=== PATIENT | female | born 1970 | race Caucasian/White ===

== ENCOUNTER 2020-06-04 15:30 | Inpatient (IN) | payer OTHER, MEDICARE ==
[~2020-06-04] VITALS: Ht 170.2 cm; Wt 52.9 kg
[2020-06-04] MEDS ORDERED: ondansetron/PF 4mg/2ml inj IV ONE (15:50)
[2020-06-04] MEDS ORDERED: morphine 4 MG/ML inj SYRINge IV ONE ×2 (15:50→16:50)
[2020-06-04 16:20] LABS: BASOPHILS # (AUTO) 0.1 X10'3 (0-0.2); BASOPHILS % (AUTO) 1.1 % (0-1); EOSINOPHILS # (AUTO) 0.1 X10'3 (0-0.9); EOSINOPHILS % (AUTO) 0.4 % (0-6); HEMOGLOBIN 7.1 g/dl (12.0-16.0); LYMPHOCYTES % (AUTO) 14.8 % (21-51); MEAN CORPUSCULAR HEMOGLOBIN 34.2 PG (27.0-31.0); MEAN CORPUSCULAR HGB CONC 33.2 g/dL (33.0-36.5); MEAN CORPUSCULAR VOLUME 103.2 FL (78-98); MEAN PLATELET VOLUME 10.6 FL (7.4-10.4); MONOCYTES # (AUTO) 1.6 X10'3 (0-0.9); MONOCYTES % (AUTO) 11.8 % (2-12); NEUTROPHILS # (AUTO) 9.6 X10'3 (1.8-7.7); NEUTROPHILS % (AUTO) 71.9 % (42-75); PLATELET COUNT 170 X10'3 (140-440); RED BLOOD COUNT 2.07 X10'6 (4.20-5.60); RED CELL DISTRIBUTION WIDTH 21.6 % (11.5-14.5); WHITE BLOOD COUNT 13.4 X10'3 (4.5-11.0)
[2020-06-04 16:22] LABS: HEMATOCRIT 21.3 % (35.0-45.0)
[2020-06-04 16:39] LABS: ALANINE AMINOTRANSFERASE 55 U/L (12-78); ALBUMIN 1.7 G/DL (3.4-5.0); ALKALINE PHOSPHATASE 258 IU/L (46-116); ANION GAP 6 (8-16); ASPARTATE AMINO TRANSFERASE 33 U/L (10-37); BILIRUBIN,TOTAL 3.8 MG/DL (0.1-1.0); BLOOD UREA NITROGEN 5 MG/DL (7-18); BUN/CREATININE RATIO 6.5 (6.6-38.0); CALCIUM 7.7 MG/DL (8.5-10.1); CHLORIDE 89 MMOL/L (99-107); CREATININE 0.77 MG/DL (0.40-0.90); GLUCOSE 305 MG/DL (70-104); SODIUM 123 MMOL/L (135-145); eGFR 80 ML/MIN
[2020-06-04 16:41] LABS: ALBUMIN/GLOBULIN RATIO 0.4 (1.1-1.5); TOTAL PROTEIN 5.7 G/DL (6.4-8.2)
[2020-06-04 16:43] LABS: POTASSIUM 2.8 MMOL/L (3.5-5.1)
[2020-06-04] MEDS ORDERED: normal saline 1000ML IV soln IVB ONE ×2 (16:50→19:25)
[2020-06-04] MEDS ORDERED: potassium Cl 10 mEq/100mL bag IV ONE ×2 (16:50→17:50)
[2020-06-04] MEDS ORDERED: iohexol 300mg/ml 100ml inj. ONE (17:11)
[2020-06-04] MEDS ORDERED: pantoprazole 40 MG vial IV ONE (17:25)
[2020-06-04] MEDS ORDERED: CefTRIAXone/D5W-Rocephin 1gm 50 ML IV ONE (17:30)
[2020-06-04 17:39] LABS: ANISOCYTOSIS 3+; PLATELET ESTIMATE NORMAL; TARGET CELLS 3+
[2020-06-04 17:41] LABS: POLYCHROMASIA 1+
[2020-06-04 17:42] LABS: PARTIAL THROMBOPLASTIN TIME 33 SECONDS (22-32)
[2020-06-04] MEDS ORDERED: phytonadione inj. 10 MG in normal saline 100ml IV soln 100 ML IV ONE (18:10)
[2020-06-04 18:52] LABS: CLARITY,URINE CLEAR (Clear); COLOR,URINE YELLOW (Yellow); GLUCOSE, URINE NEGATIVE (Neg); KETONES,URINE NEGATIVE (Neg); LEUKOCYTE ESTERASE ,URINE NEGATIVE (Neg); NITRITES, URINE NEGATIVE (Neg); OCCULT BLOOD,URINE NEGATIVE (Neg); PROTEIN,URINE NEGATIVE (Neg); UA COLLECTION TYPE CLN CATCH MIDSTREAM; UROBILINOGEN,URINE 0.2 E.U/dL (0.2-1.0)
--- NOTE | 2020-06-04 19:00 | NUR ---
LAB CALLED TO REPORT THAT PT HAS ANTIBODIES AND UNIT IS READY. DELVIN ANDRAE AWARE.
[2020-06-04 19:54] VITALS: BP 130/65
[2020-06-04 20:09] VITALS: BP 117/84
[2020-06-04] MEDS ORDERED: magnesium 2GM in 50ml NS 50 ML IV PRN (20:10)
[2020-06-04] MEDS ORDERED: acetaminophen 325mg tablet PO PRN (20:10)
[2020-06-04] MEDS ORDERED: potassium Cl 20 mEq SR tablet PO PRN ×2 (20:10)
[2020-06-04] MEDS ORDERED: magnesium 4gm in 100ml NS 100 ML IV PRN (20:10)
[2020-06-04] MEDS ORDERED: potassium CL 10mEq/100ml bag 100 ML IV PRN (20:10)
[2020-06-04] MEDS: normal saline 1000ml 1,000 ML IV SCH (20:34)
[2020-06-04 21:09] VITALS: BP 125/80
--- NOTE | 2020-06-04 21:11 | NUR ---
Pt is tolerating the blood transfusion without difficulty at this time.
[2020-06-04] MEDS ORDERED: METO-395 PO (21:37)
[2020-06-04] MEDS ORDERED: APIX5TAB3 PO (21:37)
[2020-06-04 22:00] VITALS: BP 128/82
[2020-06-04] MEDS: potassium CL 10mEq/100ml bag 100 ML IV PRN ×2 (22:34→23:53)
[2020-06-04] MEDS: morphine 2 MG/ML inj. syringe IV PRN (22:44)
[2020-06-04] MEDS: piperacillin/tazo 4.5gm/100ml 100 ML IV SCH (23:52)
[2020-06-05] VITALS (15 sets, daily range): BP systolic 87–115; BP diastolic 49–71
[2020-06-05] MEDS ORDERED: piperacillin/tazo 3.375gm/50ml 50 ML IV SCH
[2020-06-05] MEDS: potassium CL 10mEq/100ml bag 100 ML IV PRN ×4 (01:13→05:51)
[2020-06-05 03:49] LABS: BASOPHILS # (AUTO) 0.1 X10'3 (0-0.2); BASOPHILS % (AUTO) 0.5 % (0-1); EOSINOPHILS # (AUTO) 0.1 X10'3 (0-0.9); EOSINOPHILS % (AUTO) 1.1 % (0-6); HEMATOCRIT 23.1 % (35.0-45.0); HEMOGLOBIN 7.9 g/dl (12.0-16.0); LYMPHOCYTES # (AUTO) 2.6 X10'3 (1.1-4.8); LYMPHOCYTES % (AUTO) 19.7 % (21-51); MEAN CORPUSCULAR HEMOGLOBIN 33.8 PG (27.0-31.0); MEAN CORPUSCULAR VOLUME 99.4 FL (78-98); MEAN PLATELET VOLUME 10.7 FL (7.4-10.4); MONOCYTES # (AUTO) 1.8 X10'3 (0-0.9); MONOCYTES % (AUTO) 13.9 % (2-12); NEUTROPHILS # (AUTO) 8.6 X10'3 (1.8-7.7); NEUTROPHILS % (AUTO) 64.8 % (42-75); PLATELET COUNT 143 X10'3 (140-440); RED BLOOD COUNT 2.32 X10'6 (4.20-5.60); RED CELL DISTRIBUTION WIDTH 19.7 % (11.5-14.5); WHITE BLOOD COUNT 13.2 X10'3 (4.5-11.0)
[2020-06-05] MEDS: morphine 2 MG/ML inj. syringe IV PRN ×5 (04:56→21:32)
[2020-06-05] MEDS: normal saline 1000ml 1,000 ML IV SCH ×2 (05:51→16:21)
--- NOTE | 2020-06-05 06:35 | NUR ---
Problems reprioritized. Patient report given, questions answered & plan of care reviewed with DELVIN Prakash.
--- NOTE | 2020-06-05 06:37 | NUR ---
Patient in room ORTHO 4013. I have received report from Ashlie Henriquez and had the opportunity to ask questions and assume patient care.
[2020-06-05] MEDS: metoprolol succinate 25mg (24-HOUR) SR. Tablet PO SCH (07:46)
[2020-06-05] MEDS: piperacillin/tazo 4.5gm/100ml 100 ML IV SCH ×2 (07:47→16:13)
[2020-06-05] MEDS: K and/or MAG REPLACEMENT MC SCH ×2 (08:00→19:48)
[2020-06-05] MEDS ORDERED: octreotide inj. 1,250 MCG in normal saline 250ml IV soln 250 ML IV SCH (08:50)
[2020-06-05 09:08] LABS: BASOPHILS # (AUTO) 0.1 X10'3 (0-0.2); BASOPHILS % (AUTO) 0.6 % (0-1); EOSINOPHILS # (AUTO) 0.1 X10'3 (0-0.9); EOSINOPHILS % (AUTO) 0.8 % (0-6); HEMATOCRIT 23.6 % (35.0-45.0); HEMOGLOBIN 8.1 g/dl (12.0-16.0); LYMPHOCYTES # (AUTO) 1.8 X10'3 (1.1-4.8); LYMPHOCYTES % (AUTO) 12.4 % (21-51); MEAN CORPUSCULAR HEMOGLOBIN 34.4 PG (27.0-31.0); MEAN CORPUSCULAR HGB CONC 34.3 g/dL (33.0-36.5); MEAN CORPUSCULAR VOLUME 100.2 FL (78-98); MEAN PLATELET VOLUME 10.6 FL (7.4-10.4); MONOCYTES # (AUTO) 2.2 X10'3 (0-0.9); MONOCYTES % (AUTO) 15.8 % (2-12); NEUTROPHILS % (AUTO) 70.4 % (42-75); PLATELET COUNT 148 X10'3 (140-440); RED BLOOD COUNT 2.36 X10'6 (4.20-5.60); RED CELL DISTRIBUTION WIDTH 20.8 % (11.5-14.5); WHITE BLOOD COUNT 14.2 X10'3 (4.5-11.0)
[2020-06-05 09:24] LABS: ALBUMIN 1.4 G/DL (3.4-5.0); ANION GAP 1 (8-16); BLOOD UREA NITROGEN 5 MG/DL (7-18); BUN/CREATININE RATIO 8.6 (6.6-38.0); CALCIUM 7.3 MG/DL (8.5-10.1); CHLORIDE 99 MMOL/L (99-107); CREATININE 0.58 MG/DL (0.40-0.90); GLUCOSE 86 MG/DL (70-104); MAGNESIUM 1.3 MG/DL (1.5-2.4); POTASSIUM 3.8 MMOL/L (3.5-5.1); SODIUM 128 MMOL/L (135-145); TOTAL CARBON DIOXIDE 27.7 MMOL/L (24-32); eGFR > 90 ML/MIN
[2020-06-05 10:24] LABS: TOTAL CELLS COUNTED 100
[2020-06-05 10:27] LABS: ANISOCYTOSIS 3+; HYPOCHROMASIA 1+; PLATELET ESTIMATE NORMAL; POLYCHROMASIA 2+; TARGET CELLS 2+
[2020-06-05] MEDS: magnesium Cl slow-release 64mg tablet PO PRN ×2 (10:27→23:03)
[2020-06-05 10:28] LABS: SCHISTOCYTES FEW
[2020-06-05 11:23] LABS: HEMOGLOBIN 8.9 g/dl (12.0-16.0); MEAN CORPUSCULAR HEMOGLOBIN 34.2 PG (27.0-31.0); MEAN CORPUSCULAR HGB CONC 34.2 g/dL (33.0-36.5); MEAN PLATELET VOLUME 10.4 FL (7.4-10.4); PLATELET COUNT 152 X10'3 (140-440); WHITE BLOOD COUNT 14.7 X10'3 (4.5-11.0)
[2020-06-05] MEDS: pantoprazole 40MG/NS 100ML BAG 100 ML IV SCH ×2 (11:50→16:14)
[2020-06-05 12:46] LABS: OCCULT BLOOD STOOL NEGATIVE (Neg)
[2020-06-05] MEDS ORDERED: fentaNYL/PF 50MCG/1 ML 2ML syringe ONE ×2 (14:13→17:11)
--- NOTE | 2020-06-05 15:17 | NUR ---
Malnutrition consult: Pt reports 2-13 lb wt loss with decreased appetite per malnutrition risk screen with RN. Current wt isn't scaled. D/w RN who reports patient's current documented BMI of 15.5 very unlikely. RN will obtain scaled weight once pt returns from paracentesis. RD briefly spoke with pt via TC prior to pt leaving room for para, pt reports she is "starving" and is requesting food. Pt with no documented significant decrease in muscle strength or edema. Pt with hx liver cirrhosis and ascites. Likely that patient's weight fluctuates with changes in fluid status. Pt currently lacks a minimum of two criteria for malnutrition. Will continue to follow. Addendum: 06/05/20 at [address] Amended: Links added.
--- NOTE | 2020-06-05 17:07 | NUR ---
Pt off unit to GI lab
[2020-06-05] MEDS ORDERED: LIDOcaine Viscous 15ml cup ONE (17:11)
[2020-06-05] MEDS ORDERED: MIDAZolam 5mg/5ml vial ONE (17:11)
--- NOTE | 2020-06-05 18:22 | NUR ---
Problems reprioritized. Patient report given, questions answered & plan of care reviewed with Ashlie Block
--- NOTE | 2020-06-05 19:44 | NUR ---
Patient back to floor from EGD. Pt alert and orientated x4. Pt requesting something to eat at this time.
--- NOTE | 2020-06-05 19:53 | NUR ---
New order received for clear liquid diet.
[2020-06-05 20:27] LABS: HEMATOCRIT 28.5 % (35.0-45.0); HEMOGLOBIN 9.7 g/dl (12.0-16.0); MEAN CORPUSCULAR HEMOGLOBIN 35.1 PG (27.0-31.0); MEAN CORPUSCULAR HGB CONC 34.1 g/dL (33.0-36.5); MEAN CORPUSCULAR VOLUME 102.8 FL (78-98); MEAN PLATELET VOLUME 10.4 FL (7.4-10.4); PLATELET COUNT 158 X10'3 (140-440); RED BLOOD COUNT 2.77 X10'6 (4.20-5.60); RED CELL DISTRIBUTION WIDTH 20.9 % (11.5-14.5); WHITE BLOOD COUNT 13.8 X10'3 (4.5-11.0)
--- NOTE | 2020-06-05 22:00 | NUR ---
In to check post-op vital signs to find patient had taken off blood pressure cuff thus only able the to get 2 post op vital sign readings. Patient vital signs are stable at this time.
[2020-06-06] VITALS (10 sets, daily range): BP systolic 94–147; BP diastolic 55–79
[2020-06-06] MEDS: pantoprazole 40MG/NS 100ML BAG 100 ML IV SCH ×3 (00:21→11:00)
[2020-06-06] MEDS: piperacillin/tazo 4.5gm/100ml 100 ML IV SCH ×3 (00:21→12:51)
[2020-06-06] MEDS: morphine 2 MG/ML inj. syringe IV PRN ×5 (01:35→21:04)
--- NOTE | 2020-06-06 02:31 | NUR ---
Made aware that patient was having drainage around j-tube site. Some drainage noted, 4x4, abd pad with foam tape applied. J-tube was drained of purulent drainage of 25 mls. Will continue to monitor. Addendum: 06/06/20 at 0614 by Ashlie Robertson RN Not a j-tube but walter drain
[2020-06-06] MEDS: normal saline 1000ml 1,000 ML IV SCH ×3 (05:41→23:28)
--- NOTE | 2020-06-06 06:00 | NUR ---
Patient in room ORTHO 4013. I have received report from Simone Dailey RN and had the opportunity to ask questions and assume patient care.
--- NOTE | 2020-06-06 06:14 | NUR ---
Report given to Shantel HARGROVE.
[2020-06-06 06:29] LABS: BASOPHILS # (AUTO) 0.2 X10'3 (0-0.2); EOSINOPHILS # (AUTO) 0.4 X10'3 (0-0.9); EOSINOPHILS % (AUTO) 2.2 % (0-6); LYMPHOCYTES # (AUTO) 1.8 X10'3 (1.1-4.8); MEAN CORPUSCULAR HEMOGLOBIN 34.3 PG (27.0-31.0); MEAN CORPUSCULAR HGB CONC 33.2 g/dL (33.0-36.5); MEAN CORPUSCULAR VOLUME 103.4 FL (78-98); MONOCYTES # (AUTO) 1.6 X10'3 (0-0.9); MONOCYTES % (AUTO) 10.3 % (2-12); NEUTROPHILS # (AUTO) 12.1 X10'3 (1.8-7.7); NEUTROPHILS % (AUTO) 75.5 % (42-75); PLATELET COUNT 130 X10'3 (140-440); RED BLOOD COUNT 1.99 X10'6 (4.20-5.60); RED CELL DISTRIBUTION WIDTH 21.6 % (11.5-14.5); WHITE BLOOD COUNT 16.1 X10'3 (4.5-11.0)
[2020-06-06 06:38] LABS: ALBUMIN 1.3 G/DL (3.4-5.0); ANION GAP 5 (8-16); BLOOD UREA NITROGEN 6 MG/DL (7-18); BUN/CREATININE RATIO 7.8 (6.6-38.0); CALCIUM 7.8 MG/DL (8.5-10.1); CHLORIDE 98 MMOL/L (99-107); CREATININE 0.77 MG/DL (0.40-0.90); GLUCOSE 204 MG/DL (70-104); MAGNESIUM 1.5 MG/DL (1.5-2.4); POTASSIUM 3.7 MMOL/L (3.5-5.1); SODIUM 127 MMOL/L (135-145); TOTAL CARBON DIOXIDE 23.6 MMOL/L (24-32); eGFR 80 ML/MIN
[2020-06-06 06:48] LABS: HEMATOCRIT 20.6 % (35.0-45.0); HEMOGLOBIN 6.8 g/dl (12.0-16.0)
--- NOTE | 2020-06-06 07:05 | NUR ---
Paged : [phone], Claudia Sherwood. Patient has a critical H&H of 6.8, and 20.6. would you like to order a unit of LRPC? Patient is currently asymptomatic. Eric Funes.
[2020-06-06 07:29] LABS: ANISOCYTOSIS 3+; PLATELET ESTIMATE DECREASED; POLYCHROMASIA 2+; TARGET CELLS 1+
[2020-06-06] MEDS: K and/or MAG REPLACEMENT MC SCH ×2 (08:00→20:00)
[2020-06-06] MEDS: metoprolol succinate 25mg (24-HOUR) SR. Tablet PO SCH (08:49)
[2020-06-06] MEDS ORDERED: HYDROcodone/acetaminophen 5mg/325mg tablet PO PRN (12:05)
--- NOTE | 2020-06-06 12:25 | NUR ---
Birdie held this AM to transfuse blood spoke with pharmacist instructed to give the AM dose and hold 1600.
[2020-06-06] MEDS ORDERED: PEG 3350/Na sulf,bicarb,Cl/KCl oral sol 4 liter bottle PO ONE (13:05)
[2020-06-06] MEDS: HYDROcodone/acetaminophen 5mg/325mg tablet PO PRN ×2 (13:44→19:52)
[2020-06-06 16:34] LABS: HEMATOCRIT 23.4 % (35.0-45.0); HEMOGLOBIN 7.9 g/dl (12.0-16.0); MEAN CORPUSCULAR HEMOGLOBIN 33.6 PG (27.0-31.0); MEAN CORPUSCULAR HGB CONC 33.8 g/dL (33.0-36.5); MEAN CORPUSCULAR VOLUME 99.3 FL (78-98); MEAN PLATELET VOLUME 10.7 FL (7.4-10.4); PLATELET COUNT 121 X10'3 (140-440); RED BLOOD COUNT 2.35 X10'6 (4.20-5.60); WHITE BLOOD COUNT 17.2 X10'3 (4.5-11.0)
--- NOTE | 2020-06-06 18:22 | NUR ---
Problems reprioritized. Patient report given, questions answered & plan of care reviewed with Gracie Huynh RN.
--- NOTE | 2020-06-06 18:51 | NUR ---
Patient in room ORTHO 4013. I have received report from DELVIN Funes and had the opportunity to ask questions and assume patient care. Addendum: 06/06/20 at 1851 by Lilliam Taylor RN Amended: Links added.
[2020-06-06] MEDS: pantoprazole 40mg Tablet.DR PO SCH (19:51)
[2020-06-06] MEDS: lactobacillus rhamnosus 10,000 MMU CELLS/CAPSULE PO SCH (19:51)
[2020-06-06 21:24] LABS: HEMATOCRIT 23.3 % (35.0-45.0); HEMOGLOBIN 7.8 g/dl (12.0-16.0); MEAN CORPUSCULAR HEMOGLOBIN 33.4 PG (27.0-31.0); MEAN CORPUSCULAR HGB CONC 33.5 g/dL (33.0-36.5); MEAN CORPUSCULAR VOLUME 99.7 FL (78-98); MEAN PLATELET VOLUME 10.9 FL (7.4-10.4); PLATELET COUNT 118 X10'3 (140-440); RED BLOOD COUNT 2.33 X10'6 (4.20-5.60); RED CELL DISTRIBUTION WIDTH 18.8 % (11.5-14.5); WHITE BLOOD COUNT 17.5 X10'3 (4.5-11.0)
[2020-06-07] VITALS (18 sets, daily range): BP systolic 99–137; BP diastolic 58–86
[2020-06-07] MEDS: piperacillin/tazo 4.5gm/100ml 100 ML IV SCH ×3 (00:03→15:49)
[2020-06-07] MEDS: morphine 2 MG/ML inj. syringe IV PRN ×8 (01:17→23:11)
[2020-06-07] MEDS: normal saline 1000ml 1,000 ML IV SCH ×2 (04:00→19:49)
--- NOTE | 2020-06-07 06:24 | NUR ---
Patient in room ORTHO 4013. I have received report from Antonia HARGROVE and had the opportunity to ask questions and assume patient care. Patient without an IV and a full code, although a field start is still in place. Patient admitted on 06/04/2020, with a field start in place at this time and used on NOC shift.
--- NOTE | 2020-06-07 06:29 | NUR ---
Problems reprioritized. Patient report given, questions answered & plan of care reviewed with DELVIN Braun.
[2020-06-07 06:32] LABS: BASOPHILS # (AUTO) 0.2 X10'3 (0-0.2); BASOPHILS % (AUTO) 0.9 % (0-1); EOSINOPHILS # (AUTO) 0.4 X10'3 (0-0.9); LYMPHOCYTES # (AUTO) 1.7 X10'3 (1.1-4.8); LYMPHOCYTES % (AUTO) 9.4 % (21-51); MEAN CORPUSCULAR HEMOGLOBIN 33.1 PG (27.0-31.0); MEAN CORPUSCULAR HGB CONC 33.3 g/dL (33.0-36.5); MEAN CORPUSCULAR VOLUME 99.5 FL (78-98); MEAN PLATELET VOLUME 11.1 FL (7.4-10.4); MONOCYTES # (AUTO) 2.2 X10'3 (0-0.9); MONOCYTES % (AUTO) 12.4 % (2-12); NEUTROPHILS # (AUTO) 13.7 X10'3 (1.8-7.7); NEUTROPHILS % (AUTO) 75.3 % (42-75); PLATELET COUNT 106 X10'3 (140-440); RED BLOOD COUNT 1.95 X10'6 (4.20-5.60); RED CELL DISTRIBUTION WIDTH 19.1 % (11.5-14.5); WHITE BLOOD COUNT 18.1 X10'3 (4.5-11.0)
[2020-06-07 06:42] LABS: ALBUMIN 1.1 G/DL (3.4-5.0); ANION GAP 6 (8-16); BLOOD UREA NITROGEN 4 MG/DL (7-18); BUN/CREATININE RATIO 5.7 (6.6-38.0); CALCIUM 7.3 MG/DL (8.5-10.1); CHLORIDE 96 MMOL/L (99-107); GLUCOSE 236 MG/DL (70-104); MAGNESIUM 1.3 MG/DL (1.5-2.4); POTASSIUM 3.3 MMOL/L (3.5-5.1); SODIUM 125 MMOL/L (135-145); TOTAL CARBON DIOXIDE 23.3 MMOL/L (24-32); eGFR 89 ML/MIN
[2020-06-07 06:47] LABS: HEMATOCRIT 19.4 % (35.0-45.0); HEMOGLOBIN 6.4 g/dl (12.0-16.0)
--- NOTE | 2020-06-07 07:03 | NUR ---
PAGER ID: [phone] MESSAGE: GOOD MORNING! 4013B has a critical H/H 6.4/19.4. Aparna [phone]
[2020-06-07] MEDS: HYDROcodone/acetaminophen 5mg/325mg tablet PO PRN (07:08)
[2020-06-07] MEDS: lactobacillus rhamnosus 10,000 MMU CELLS/CAPSULE PO SCH ×2 (07:08→19:58)
[2020-06-07] MEDS: pantoprazole 40mg Tablet.DR PO SCH ×2 (07:08→19:58)
[2020-06-07] MEDS: K and/or MAG REPLACEMENT MC SCH ×2 (08:00→20:04)
[2020-06-07] MEDS: metoprolol succinate 25mg (24-HOUR) SR. Tablet PO SCH (08:00)
[2020-06-07 08:57] LABS: TOTAL CELLS COUNTED 100
[2020-06-07 08:59] LABS: ANISOCYTOSIS 2+; PLATELET ESTIMATE DECREASED
[2020-06-07 09:00] LABS: ACANTHOCYTES FEW; BURR CELLS FEW; HYPOCHROMASIA 1+; POLYCHROMASIA FEW; TARGET CELLS 1+
--- NOTE | 2020-06-07 14:00 | NUR ---
O2 Sat at rest on room air:_94__% If below 89%: Recovery O2 Sat at rest on ___LPM:___%:___% via (mask/nasal cannula, etc..) No further documentation is necessary. If O2 Sat did not drop below 89% on room air,ambulate patient on room air. O2 Sat while ambulating on room air:___% Recovery O2 Sat while ambulating on ___LPM:___% No further documentation is necessary. If patient does not drop below 89% while ambulating, he/she does not qualify for home O2. Addendum: 06/07/20 at 1700 by Aparna Romeo RN Wrong patient charted on
[2020-06-07 14:57] LABS: HEMATOCRIT 25.3 % (35.0-45.0); HEMOGLOBIN 8.5 g/dl (12.0-16.0); MEAN CORPUSCULAR HEMOGLOBIN 33.2 PG (27.0-31.0); MEAN CORPUSCULAR HGB CONC 33.7 g/dL (33.0-36.5); MEAN CORPUSCULAR VOLUME 98.5 FL (78-98); MEAN PLATELET VOLUME 11.1 FL (7.4-10.4); PLATELET COUNT 95 X10'3 (140-440); RED BLOOD COUNT 2.57 X10'6 (4.20-5.60); RED CELL DISTRIBUTION WIDTH 16.7 % (11.5-14.5); WHITE BLOOD COUNT 19.9 X10'3 (4.5-11.0)
--- NOTE | 2020-06-07 17:00 | NUR ---
Off the unit to GI lab
[2020-06-07] MEDS ORDERED: fentaNYL/PF 50MCG/1 ML 2ML syringe ONE (17:30)
[2020-06-07] MEDS ORDERED: MIDAZolam 5mg/5ml vial ONE (17:30)
--- NOTE | 2020-06-07 18:20 | NUR ---
Patient in room ORTHO 4013. I have received report from Aparna HARGROVE and had the opportunity to ask questions and assume patient care. Pt. remains in procedure at this time.
[2020-06-07 20:27] LABS: HEMOGLOBIN 7.3 g/dl (12.0-16.0); MEAN CORPUSCULAR HEMOGLOBIN 32.5 PG (27.0-31.0); MEAN CORPUSCULAR HGB CONC 33.4 g/dL (33.0-36.5); MEAN CORPUSCULAR VOLUME 97.4 FL (78-98); MEAN PLATELET VOLUME 11.1 FL (7.4-10.4); PLATELET COUNT 92 X10'3 (140-440); RED BLOOD COUNT 2.26 X10'6 (4.20-5.60); RED CELL DISTRIBUTION WIDTH 17.6 % (11.5-14.5); WHITE BLOOD COUNT 17.9 X10'3 (4.5-11.0)
[2020-06-08] MEDS: piperacillin/tazo 4.5gm/100ml 100 ML IV SCH ×4 (00:10→23:48)
[2020-06-08] MEDS ORDERED: potassium Cl 20 mEq SR tablet PO PRN ×4 (01:30→09:35)
[2020-06-08] MEDS ORDERED: potassium CL 10mEq/100ml bag 100 ML IV PRN ×2 (01:30→09:35)
[2020-06-08] MEDS: morphine 2 MG/ML inj. syringe IV PRN ×4 (01:56→09:12)
[2020-06-08 04:21] LABS: BASOPHILS # (AUTO) 0.1 X10'3 (0-0.2); BASOPHILS % (AUTO) 0.5 % (0-1); EOSINOPHILS # (AUTO) 0.4 X10'3 (0-0.9); HEMATOCRIT 22.8 % (35.0-45.0); HEMOGLOBIN 7.6 g/dl (12.0-16.0); LYMPHOCYTES # (AUTO) 1.7 X10'3 (1.1-4.8); LYMPHOCYTES % (AUTO) 8.4 % (21-51); MEAN CORPUSCULAR HEMOGLOBIN 32.3 PG (27.0-31.0); MEAN CORPUSCULAR HGB CONC 33.2 g/dL (33.0-36.5); MEAN CORPUSCULAR VOLUME 97.5 FL (78-98); MEAN PLATELET VOLUME 11.4 FL (7.4-10.4); MONOCYTES # (AUTO) 2.2 X10'3 (0-0.9); MONOCYTES % (AUTO) 10.9 % (2-12); NEUTROPHILS # (AUTO) 15.6 X10'3 (1.8-7.7); NEUTROPHILS % (AUTO) 78.2 % (42-75); PLATELET COUNT 109 X10'3 (140-440); RED BLOOD COUNT 2.34 X10'6 (4.20-5.60); RED CELL DISTRIBUTION WIDTH 18.2 % (11.5-14.5)
[2020-06-08 04:59] LABS: ANISOCYTOSIS 2+; PLATELET ESTIMATE DECREASED; TOTAL CELLS COUNTED 100
[2020-06-08 05:00] LABS: BURR CELLS 1+; LARGE PLATELETS FEW; POLYCHROMASIA FEW; SMUDGE CELLS FEW; TARGET CELLS FEW
[2020-06-08] MEDS: normal saline 1000ml 1,000 ML IV SCH ×2 (05:12→16:06)
[2020-06-08] MEDS: HYDROcodone/acetaminophen 5mg/325mg tablet PO PRN ×2 (05:16→20:21)
[2020-06-08 06:00] VITALS: BP 124/80
--- NOTE | 2020-06-08 06:20 | NUR ---
Problems reprioritized. Patient report given, questions answered & plan of care reviewed with Garrison RN.
--- NOTE | 2020-06-08 06:30 | NUR ---
Patient in room ORTHO 4013. I have received report from Emerita HARGROVE and had the opportunity to ask questions and assume patient care.
[2020-06-08 06:46] LABS: HEMATOCRIT 23.3 % (35.0-45.0); MEAN CORPUSCULAR HEMOGLOBIN 33.7 PG (27.0-31.0); MEAN CORPUSCULAR HGB CONC 34.4 g/dL (33.0-36.5); MEAN CORPUSCULAR VOLUME 97.9 FL (78-98); MEAN PLATELET VOLUME 11.1 FL (7.4-10.4); PLATELET COUNT 110 X10'3 (140-440); RED BLOOD COUNT 2.38 X10'6 (4.20-5.60); RED CELL DISTRIBUTION WIDTH 17.9 % (11.5-14.5); WHITE BLOOD COUNT 20.7 X10'3 (4.5-11.0)
[2020-06-08 06:57] LABS: ALBUMIN 1.1 G/DL (3.4-5.0); ANION GAP 4 (8-16); BLOOD UREA NITROGEN 3 MG/DL (7-18); CHLORIDE 99 MMOL/L (99-107); GLUCOSE 175 MG/DL (70-104); MAGNESIUM 1.2 MG/DL (1.5-2.4); POTASSIUM 3.6 MMOL/L (3.5-5.1); SODIUM 125 MMOL/L (135-145); TOTAL CARBON DIOXIDE 22.3 MMOL/L (24-32); eGFR > 90 ML/MIN
[2020-06-08] MEDS: K and/or MAG REPLACEMENT MC SCH ×2 (07:50→20:00)
--- NOTE | 2020-06-08 07:59 | NUR ---
MESSAGE: Garrison espinal [phone] RE: meagan Sherwood patient has low mag would you like me to add the protocol for replacement, also she would like a diet advancement. thanks Garrison.
[2020-06-08] MEDS: pantoprazole 40mg Tablet.DR PO SCH ×2 (08:08→20:20)
[2020-06-08] MEDS: metoprolol succinate 25mg (24-HOUR) SR. Tablet PO SCH (08:08)
[2020-06-08] MEDS: lactobacillus rhamnosus 10,000 MMU CELLS/CAPSULE PO SCH ×2 (08:08→20:20)
--- NOTE | 2020-06-08 09:00 | NUR ---
HENRY drain leaking at insertion site, placed small optifoam pad over to contain leakage.
[2020-06-08] MEDS ORDERED: magnesium 2GM in 50ml NS 50 ML IV PRN (09:35)
[2020-06-08] MEDS ORDERED: magnesium 4gm in 100ml NS 100 ML IV PRN (09:35)
--- NOTE | 2020-06-08 11:00 | NUR ---
HENRY drain insertion site leaking, replaced optifoam again.
[2020-06-08] MEDS: magnesium Cl slow-release 64mg tablet PO PRN (11:15)
[2020-06-08] MEDS: morphine 4 MG/ML inj SYRINge IV PRN ×6 (11:18→23:45)
[2020-06-08 11:50] VITALS: BP 125/87
--- NOTE | 2020-06-08 13:11 | NUR ---
HENRY drain insertion site leaking, replaced optifoam again.
[2020-06-08 14:12] LABS: HEMATOCRIT 22.7 % (35.0-45.0); HEMOGLOBIN 7.6 g/dl (12.0-16.0); MEAN CORPUSCULAR HEMOGLOBIN 32.8 PG (27.0-31.0); MEAN CORPUSCULAR HGB CONC 33.6 g/dL (33.0-36.5); MEAN CORPUSCULAR VOLUME 97.6 FL (78-98); MEAN PLATELET VOLUME 10.7 FL (7.4-10.4); PLATELET COUNT 116 X10'3 (140-440); RED BLOOD COUNT 2.33 X10'6 (4.20-5.60); RED CELL DISTRIBUTION WIDTH 18.2 % (11.5-14.5); WHITE BLOOD COUNT 20.1 X10'3 (4.5-11.0)
--- NOTE | 2020-06-08 15:19 | NUR ---
HENRY drain insertion site leaking, replaced optifoam again
[2020-06-08 18:00] VITALS: BP 104/61
--- NOTE | 2020-06-08 18:59 | NUR ---
Problems reprioritized. Patient report given, questions answered & plan of care reviewed with Gracie Nichols RN.
[2020-06-08 20:51] LABS: HEMATOCRIT 23.5 % (35.0-45.0); HEMOGLOBIN 7.7 g/dl (12.0-16.0); MEAN CORPUSCULAR HEMOGLOBIN 32.7 PG (27.0-31.0); MEAN CORPUSCULAR HGB CONC 32.9 g/dL (33.0-36.5); MEAN CORPUSCULAR VOLUME 99.4 FL (78-98); MEAN PLATELET VOLUME 10.7 FL (7.4-10.4); PLATELET COUNT 120 X10'3 (140-440); RED BLOOD COUNT 2.36 X10'6 (4.20-5.60); RED CELL DISTRIBUTION WIDTH 18.7 % (11.5-14.5); WHITE BLOOD COUNT 21.4 X10'3 (4.5-11.0)
[2020-06-08 22:00] VITALS: BP 115/64
[2020-06-09] MEDS: magnesium Cl slow-release 64mg tablet PO PRN ×3 (00:10→19:10)
[2020-06-09] MEDS: normal saline 1000ml 1,000 ML IV SCH (00:10)
[2020-06-09] MEDS: morphine 4 MG/ML inj SYRINge IV PRN ×8 (02:07→23:28)
[2020-06-09 05:33] VITALS: BP 128/68
--- NOTE | 2020-06-09 06:27 | NUR ---
Problems reprioritized. Patient report given, questions answered & plan of care reviewed with DELVIN Abbasi.
[2020-06-09 07:40] LABS: BASOPHILS # (AUTO) 0.1 X10'3 (0-0.2); BASOPHILS % (AUTO) 0.5 % (0-1); EOSINOPHILS # (AUTO) 0.4 X10'3 (0-0.9); EOSINOPHILS % (AUTO) 1.5 % (0-6); HEMATOCRIT 24.6 % (35.0-45.0); HEMOGLOBIN 8.1 g/dl (12.0-16.0); LYMPHOCYTES # (AUTO) 1.2 X10'3 (1.1-4.8); LYMPHOCYTES % (AUTO) 4.9 % (21-51); MEAN CORPUSCULAR HEMOGLOBIN 33.6 PG (27.0-31.0); MEAN CORPUSCULAR VOLUME 101.8 FL (78-98); MEAN PLATELET VOLUME 10.7 FL (7.4-10.4); MONOCYTES # (AUTO) 2.7 X10'3 (0-0.9); MONOCYTES % (AUTO) 11.1 % (2-12); PLATELET COUNT 120 X10'3 (140-440); RED BLOOD COUNT 2.42 X10'6 (4.20-5.60); RED CELL DISTRIBUTION WIDTH 19.2 % (11.5-14.5); WHITE BLOOD COUNT 24.3 X10'3 (4.5-11.0)
[2020-06-09] MEDS: K and/or MAG REPLACEMENT MC SCH ×2 (08:00→20:02)
[2020-06-09 08:02] LABS: ALBUMIN 1.2 G/DL (3.4-5.0); ANION GAP 8 (8-16); BLOOD UREA NITROGEN 4 MG/DL (7-18); BUN/CREATININE RATIO 4.9 (6.6-38.0); CALCIUM 7.5 MG/DL (8.5-10.1); CHLORIDE 98 MMOL/L (99-107); CREATININE 0.81 MG/DL (0.40-0.90); GLUCOSE 140 MG/DL (70-104); MAGNESIUM 1.2 MG/DL (1.5-2.4); SODIUM 124 MMOL/L (135-145); eGFR 75 ML/MIN
[2020-06-09 08:20] LABS: ALANINE AMINOTRANSFERASE 32 U/L (12-78); ALKALINE PHOSPHATASE 200 IU/L (46-116); ASPARTATE AMINO TRANSFERASE 57 U/L (10-37); BILIRUBIN,TOTAL 7.8 MG/DL (0.1-1.0)
[2020-06-09 08:21] LABS: ALBUMIN/GLOBULIN RATIO 0.4 (1.1-1.5); POTASSIUM 4.1 MMOL/L (3.5-5.1); TOTAL PROTEIN 4.4 G/DL (6.4-8.2)
[2020-06-09] MEDS: piperacillin/tazo 4.5gm/100ml 100 ML IV SCH (08:25)
[2020-06-09] MEDS: pantoprazole 40mg Tablet.DR PO SCH ×2 (08:30→19:10)
[2020-06-09] MEDS: metoprolol succinate 25mg (24-HOUR) SR. Tablet PO SCH (08:30)
[2020-06-09] MEDS: lactobacillus rhamnosus 10,000 MMU CELLS/CAPSULE PO SCH ×2 (08:31→19:10)
[2020-06-09 09:32] LABS: ANISOCYTOSIS 2+; PLATELET ESTIMATE DECREASED
[2020-06-09 09:33] LABS: POLYCHROMASIA FEW
[2020-06-09 09:34] LABS: BURR CELLS 2+; TARGET CELLS FEW
[2020-06-09 11:37] VITALS: BP 121/82
--- NOTE | 2020-06-09 12:25 | NUR ---
Initial: Pt admit DX multiple intra-abdominal abscesses, hematochezia, anemia r/t GI losses, jaundiced, and end-stage liver disease r/t etoh hx per MD note. Hx former alcoholic quit 2 months prior and cirrhosis per EMR. S/p EGD negative for GIB w/ 300ml aspirate by IR w/ abdomen HENRY placed. Advanced to Na-restricted diet 06/08 PO 25-50% first meals w/ PO 75-100% clear liquids prior. Noted BMI 18.3 though no scaled wt this admit and positive 8.4L fluid balance. RD d/w RN regarding updated wt and B12/MVI supplementation if MD agreeable given hx and elevated MCV. LBM 06/08 w/ 02/04 abdominal pain per EMR likely impacting PO solid meals. RD recommended Ensure Enlive TIDWM for additional protein/kcal needs given DX/PO; MD notified. Will continue to monitor for PO tolerance and additional diet modifications given GI DX. Rec: 1. continue Na-restricted diet per MD; consider liberalization to regular if PO declines; encourage PO 2. ensure enlive TIDWM 3. bowel care per rx 4. weekly scaled wts Addendum: 06/09/20 at [address] Amended: Links added.
[2020-06-09] MEDS ORDERED: lactose-reduced food (Ensure Enlive) - 237ml bottle PO SCH (13:00)
[2020-06-09 15:18] LABS: HBSAG SCREEN Negative (Negative); HEPATITIS C ANTIBODY 0.1 s/co ratio (0.0-0.9)
[2020-06-09] MEDS: piperacillin/tazo 3.375gm/50ml 50 ML IV SCH ×2 (16:36→23:28)
[2020-06-09 18:00] VITALS: BP 123/73
--- NOTE | 2020-06-09 19:08 | NUR ---
Problems reprioritized. Patient report given, questions answered & plan of care reviewed with DELVIN Jane.
[2020-06-09 22:00] VITALS: BP 118/74
[2020-06-09] MEDS: HYDROcodone/acetaminophen 5mg/325mg tablet PO PRN (22:16)
[2020-06-10] VITALS (8 sets, daily range): BP systolic 99–120; BP diastolic 63–87
[2020-06-10] MEDS: morphine 4 MG/ML inj SYRINge IV PRN ×2 (04:07→07:24)
[2020-06-10 06:13] LABS: MAGNESIUM 1.3 MG/DL (1.5-2.4); POTASSIUM 4.1 MMOL/L (3.5-5.1)
[2020-06-10] MEDS: pantoprazole 40mg Tablet.DR PO SCH ×2 (07:29→21:23)
[2020-06-10] MEDS: metoprolol succinate 25mg (24-HOUR) SR. Tablet PO SCH (07:29)
[2020-06-10] MEDS: lactobacillus rhamnosus 10,000 MMU CELLS/CAPSULE PO SCH ×2 (07:29→21:23)
[2020-06-10] MEDS: magnesium Cl slow-release 64mg tablet PO PRN (07:30)
[2020-06-10] MEDS: piperacillin/tazo 3.375gm/50ml 50 ML IV SCH (07:33)
[2020-06-10 07:52] LABS: BASOPHILS # (AUTO) 0.2 X10'3 (0-0.2); BASOPHILS % (AUTO) 0.6 % (0-1); EOSINOPHILS # (AUTO) 0.8 X10'3 (0-0.9); EOSINOPHILS % (AUTO) 3.1 % (0-6); HEMATOCRIT 23.1 % (35.0-45.0); HEMOGLOBIN 7.6 g/dl (12.0-16.0); LYMPHOCYTES # (AUTO) 2.3 X10'3 (1.1-4.8); LYMPHOCYTES % (AUTO) 9.1 % (21-51); MEAN CORPUSCULAR HEMOGLOBIN 33.8 PG (27.0-31.0); MEAN CORPUSCULAR VOLUME 102.6 FL (78-98); MONOCYTES # (AUTO) 2.3 X10'3 (0-0.9); MONOCYTES % (AUTO) 8.9 % (2-12); NEUTROPHILS % (AUTO) 78.3 % (42-75); PLATELET COUNT 137 X10'3 (140-440); RED BLOOD COUNT 2.25 X10'6 (4.20-5.60); RED CELL DISTRIBUTION WIDTH 20.1 % (11.5-14.5)
[2020-06-10] MEDS: K and/or MAG REPLACEMENT MC SCH ×2 (08:00→20:00)
[2020-06-10 08:02] LABS: WHITE BLOOD COUNT 25.6 X10'3 (4.5-11.0)
[2020-06-10 08:03] LABS: ALBUMIN 1.2 G/DL (3.4-5.0); ANION GAP 10 (8-16); BLOOD UREA NITROGEN 6 MG/DL (7-18); BUN/CREATININE RATIO 4.7 (6.6-38.0); CALCIUM 7.6 MG/DL (8.5-10.1); CHLORIDE 95 MMOL/L (99-107); CREATININE 1.27 MG/DL (0.40-0.90); GLUCOSE 172 MG/DL (70-104); SODIUM 123 MMOL/L (135-145); TOTAL CARBON DIOXIDE 18.3 MMOL/L (24-32); eGFR 45 ML/MIN
--- NOTE | 2020-06-10 08:07 | NUR ---
PAGED DR LUCERO RE: PAGER ID: [phone] MESSAGE: JADEN KRUGER. [facility] 25.6. O/N ORTIZ 5199
[2020-06-10] MEDS ORDERED: diatr meglu/diatrizoate 30ml oral sol.-(3 dose) bottle PO SCH (09:00)
[2020-06-10 09:24] LABS: ANISOCYTOSIS 3+; PLATELET ESTIMATE DECREASED; TOTAL CELLS COUNTED 100
[2020-06-10 09:25] LABS: SMUDGE CELLS 1+
[2020-06-10 09:26] LABS: BURR CELLS 2+; POLYCHROMASIA FEW; TARGET CELLS FEW
[2020-06-10] MEDS ORDERED: naloxone 0.4 mg/ml inj IV PRN (09:55)
[2020-06-10] MEDS: furosemide 20 MG/2 ML vial IV SCH ×2 (10:31→21:23)
[2020-06-10] MEDS: normal saline 1000ml 1,000 ML IV SCH (10:37)
[2020-06-10] MEDS: albumin (human) 25% 100ml IV 100 ML IV SCH ×3 (10:37→21:24)
[2020-06-10] MEDS: HYDROmorphone/NS 1 mg/ml CADD 50 ML IV SCH ×8 (11:00→23:00)
--- NOTE | 2020-06-10 11:32 | NUR ---
Student documentation: I have reviewed all interventions, assessments performed and documented by [facility] Student Medication Administration: For this medication-pass time frame, all medication were reviewed, dispensed, administered and documented per hospital policy by Shannen [facility].
--- NOTE | 2020-06-10 11:33 | NUR ---
collect stool sample to rule out cdif HB Addendum: 06/10/20 at 1142 by Shannen Robert STUDENT MICHEL Amended: Links added.
[2020-06-10 13:49] LABS: BASOPHILS # (AUTO) 0.1 X10'3 (0-0.2); BASOPHILS % (AUTO) 0.3 % (0-1); EOSINOPHILS # (AUTO) 0.7 X10'3 (0-0.9); LYMPHOCYTES % (AUTO) 8.9 % (21-51); MEAN CORPUSCULAR HEMOGLOBIN 33.8 PG (27.0-31.0); MEAN CORPUSCULAR HGB CONC 32.7 g/dL (33.0-36.5); MEAN CORPUSCULAR VOLUME 103.6 FL (78-98); MEAN PLATELET VOLUME 10.9 FL (7.4-10.4); MONOCYTES # (AUTO) 2.3 X10'3 (0-0.9); MONOCYTES % (AUTO) 10.1 % (2-12); NEUTROPHILS # (AUTO) 17.5 X10'3 (1.8-7.7); NEUTROPHILS % (AUTO) 77.7 % (42-75); PLATELET COUNT 121 X10'3 (140-440); RED BLOOD COUNT 1.76 X10'6 (4.20-5.60); RED CELL DISTRIBUTION WIDTH 20.5 % (11.5-14.5); WHITE BLOOD COUNT 22.5 X10'3 (4.5-11.0)
[2020-06-10 13:53] LABS: HEMATOCRIT 18.3 % (35.0-45.0)
--- NOTE | 2020-06-10 14:10 | NUR ---
PAGED DR LUCERO RE: PAGER ID: [phone] MESSAGE: JADEN KRUGER. CRITICAL H&H 6.0 & 18.3. O/N ORTIZ 5199
[2020-06-10 14:32] LABS: ANISOCYTOSIS 3+; PLATELET ESTIMATE DECREASED
--- NOTE | 2020-06-10 16:04 | NUR ---
LAB UNABLE TO DRAW TYPE & SCREEN. CALLED PICC RN, PLACED EXTENDED.
[2020-06-10 16:23] LABS: BASOPHILS # (AUTO) 0.2 X10'3 (0-0.2); BASOPHILS % (AUTO) 0.7 % (0-1); EOSINOPHILS # (AUTO) 0.7 X10'3 (0-0.9); EOSINOPHILS % (AUTO) 3.2 % (0-6); LYMPHOCYTES % (AUTO) 9.4 % (21-51); MEAN CORPUSCULAR HEMOGLOBIN 34.6 PG (27.0-31.0); MEAN CORPUSCULAR HGB CONC 33.2 g/dL (33.0-36.5); MEAN PLATELET VOLUME 11.1 FL (7.4-10.4); MONOCYTES # (AUTO) 1.8 X10'3 (0-0.9); MONOCYTES % (AUTO) 8.2 % (2-12); NEUTROPHILS # (AUTO) 16.7 X10'3 (1.8-7.7); NEUTROPHILS % (AUTO) 78.5 % (42-75); PLATELET COUNT 123 X10'3 (140-440); RED CELL DISTRIBUTION WIDTH 20.2 % (11.5-14.5); WHITE BLOOD COUNT 21.3 X10'3 (4.5-11.0)
[2020-06-10 16:27] LABS: HEMOGLOBIN 5.9 g/dl (12.0-16.0)
[2020-06-10 16:28] LABS: HEMATOCRIT 17.7 % (35.0-45.0)
--- NOTE | 2020-06-10 16:47 | NUR ---
Student documentation: I have reviewed and agree assessment performed and documented by Meghan Lala SN [facility].
[2020-06-10] MEDS: vancomycin 125mg/5ml ORAL solution 5ml UD bottle PO SCH ×2 (16:48→21:23)
--- NOTE | 2020-06-10 18:30 | NUR ---
RECEIVED REPORT FROM ORTIZ HARGROVE AND ASSUMED PATIENT CARE
[2020-06-10] MEDS: diatr meglu/diatrizoate 30ml oral sol.-(3 dose) bottle PO SCH (21:23)
--- NOTE | 2020-06-10 22:39 | NUR ---
UNABLE TO DRAW 2000 HEMOGRAM. X3 ATTEMPTS MADE TO DRAW FROM HER LINE AND MULTIPLE ATTEMPTS MADE USING A BUTTERFLY NEEDLE. 2ND UNIT OF BLOOD HANGING NOW, WILL RE-ATTEMPT AT 0200.
[2020-06-11 01:00] VITALS: BP 108/66
[2020-06-11] MEDS: HYDROmorphone/NS 1 mg/ml CADD 50 ML IV SCH ×12 (01:00→23:00)
[2020-06-11] MEDS: vancomycin 125mg/5ml ORAL solution 5ml UD bottle PO SCH ×4 (01:42→19:55)
[2020-06-11 02:12] LABS: ANISOCYTOSIS 3+; PLATELET ESTIMATE DECREASED
[2020-06-11 02:13] LABS: ACANTHOCYTES FEW; TARGET CELLS 1+
[2020-06-11 02:17] LABS: BASOPHILS # (AUTO) 0.1 X10'3 (0-0.2); BASOPHILS % (AUTO) 0.6 % (0-1); EOSINOPHILS # (AUTO) 0.8 X10'3 (0-0.9); EOSINOPHILS % (AUTO) 3.1 % (0-6); HEMATOCRIT 30.1 % (35.0-45.0); HEMOGLOBIN 10.3 g/dl (12.0-16.0); LYMPHOCYTES # (AUTO) 1.8 X10'3 (1.1-4.8); LYMPHOCYTES % (AUTO) 7.1 % (21-51); MEAN CORPUSCULAR HEMOGLOBIN 34.8 PG (27.0-31.0); MEAN CORPUSCULAR HGB CONC 34.2 g/dL (33.0-36.5); MEAN CORPUSCULAR VOLUME 101.9 FL (78-98); MEAN PLATELET VOLUME 11.2 FL (7.4-10.4); MONOCYTES # (AUTO) 1.7 X10'3 (0-0.9); MONOCYTES % (AUTO) 6.6 % (2-12); NEUTROPHILS % (AUTO) 82.6 % (42-75); PLATELET COUNT 103 X10'3 (140-440); RED BLOOD COUNT 2.95 X10'6 (4.20-5.60); RED CELL DISTRIBUTION WIDTH 16.5 % (11.5-14.5)
[2020-06-11 02:27] LABS: ALBUMIN 2.5 G/DL (3.4-5.0); ANION GAP 11 (8-16); BLOOD UREA NITROGEN 7 MG/DL (7-18); BUN/CREATININE RATIO 6.3 (6.6-38.0); CALCIUM 8.3 MG/DL (8.5-10.1); CHLORIDE 93 MMOL/L (99-107); CREATININE 1.11 MG/DL (0.40-0.90); GLUCOSE 162 MG/DL (70-104); MAGNESIUM 1.2 MG/DL (1.5-2.4); SODIUM 124 MMOL/L (135-145); TOTAL CARBON DIOXIDE 20.1 MMOL/L (24-32); eGFR 52 ML/MIN
[2020-06-11 02:29] LABS: POTASSIUM 3.6 MMOL/L (3.5-5.1)
[2020-06-11 03:26] LABS: WHITE BLOOD COUNT 25.4 X10'3 (4.5-11.0)
[2020-06-11 04:01] LABS: LARGE PLATELETS FEW; PLATELET ESTIMATE DECREASED; TOTAL CELLS COUNTED 100
[2020-06-11 04:03] LABS: BURR CELLS 2+
[2020-06-11 04:05] LABS: POLYCHROMASIA FEW
[2020-06-11 04:07] LABS: ANISOCYTOSIS 1+; TARGET CELLS 1+
--- NOTE | 2020-06-11 05:55 | NUR ---
2ND UNIT OF BLOOD DID NOT SAVE IN [employer]. I DID PERFORM SCANS PER PROTOCOL AND IT WAS ACCEPTED ON THE TRANSFUSION SCREEN BUT IT DIDN'T SAVE. BLOOD BANK NOTIFIED AND I WAS INSTRUCTED TO FILL OUT A DOWNTIME FORM AND FAX IT DOWN TO THEM WHICH I DID. UNIT STARTED AT 06/10/20 2200 AND COMPLETED INFUSION AT 0100 06/11/20.
[2020-06-11 06:00] VITALS: BP 98/60
--- NOTE | 2020-06-11 06:12 | NUR ---
REPORT GIVEN TO PATEL HARGROVE
--- NOTE | 2020-06-11 07:08 | NUR ---
spoke to pt daughter praful at length re plan of care and pts condition. daughter states that she does not have any more questions or concerns at this time. Will stay in touch
[2020-06-11] MEDS: furosemide 20 MG/2 ML vial IV SCH ×2 (08:00→19:57)
[2020-06-11] MEDS: metoprolol succinate 25mg (24-HOUR) SR. Tablet PO SCH (08:00)
[2020-06-11] MEDS: lactobacillus rhamnosus 10,000 MMU CELLS/CAPSULE PO SCH ×2 (08:30→19:55)
[2020-06-11] MEDS: pantoprazole 40mg Tablet.DR PO SCH ×2 (08:30→19:55)
[2020-06-11] MEDS: magnesium Cl slow-release 64mg tablet PO PRN (08:30)
[2020-06-11] MEDS: diatr meglu/diatrizoate 30ml oral sol.-(3 dose) bottle PO SCH ×2 (08:31→18:37)
[2020-06-11] MEDS: albumin (human) 25% 100ml IV 100 ML IV SCH ×2 (08:48→19:56)
[2020-06-11] MEDS: K and/or MAG REPLACEMENT MC SCH ×2 (08:49→20:00)
[2020-06-11] MEDS ORDERED: diatrozoate meglu/diatrozoate sod (37% iodine) 120ML oral solution PO ONE (09:05)
[2020-06-11 10:00] VITALS: BP 99/60
[2020-06-11 11:55] LABS: BASOPHILS # (AUTO) 0.1 X10'3 (0-0.2); BASOPHILS % (AUTO) 0.4 % (0-1); EOSINOPHILS # (AUTO) 0.8 X10'3 (0-0.9); EOSINOPHILS % (AUTO) 3.2 % (0-6); HEMATOCRIT 25.9 % (35.0-45.0); HEMOGLOBIN 8.9 g/dl (12.0-16.0); LYMPHOCYTES # (AUTO) 1.8 X10'3 (1.1-4.8); LYMPHOCYTES % (AUTO) 7.6 % (21-51); MEAN CORPUSCULAR HEMOGLOBIN 34.8 PG (27.0-31.0); MEAN CORPUSCULAR HGB CONC 34.3 g/dL (33.0-36.5); MEAN CORPUSCULAR VOLUME 101.7 FL (78-98); MEAN PLATELET VOLUME 11.2 FL (7.4-10.4); MONOCYTES # (AUTO) 1.8 X10'3 (0-0.9); MONOCYTES % (AUTO) 7.4 % (2-12); NEUTROPHILS # (AUTO) 19.7 X10'3 (1.8-7.7); NEUTROPHILS % (AUTO) 81.4 % (42-75); PLATELET COUNT 79 X10'3 (140-440); RED BLOOD COUNT 2.55 X10'6 (4.20-5.60); RED CELL DISTRIBUTION WIDTH 17.3 % (11.5-14.5); WHITE BLOOD COUNT 24.2 X10'3 (4.5-11.0)
--- NOTE | 2020-06-11 12:03 | NUR ---
Student documentation: I have reviewed all interventions, assessments performed and [facility] Student Medication Administration: For this medication-pass time frame, all medication were reviewed, dispensed, administered and documented per hospital policy by Shannen [facility].
[2020-06-11] MEDS ORDERED: iohexol 300mg/ml 100ml inj. ONE (15:07)
--- NOTE | 2020-06-11 15:53 | NUR ---
Dr. Hobbs radiology with critical result for patient Coco Sherwood please call Dr. Mckenna @ [phone], Yaa 4700 neuro
--- NOTE | 2020-06-11 17:19 | NUR ---
PAGER ID: [phone] MESSAGE: Naomi [phone] re ximena manning in [id number]- she is losing a lot of blood per rectum. just fyi.
--- NOTE | 2020-06-11 17:30 | NUR ---
call to angio, call to radiology, then paged angio, no response. need to discuss results/outcome of ct scan and L pneumothorax.
[2020-06-11 18:00] VITALS: BP 104/58
[2020-06-11 18:55] LABS: BASOPHILS # (AUTO) 0.2 X10'3 (0-0.2); BASOPHILS % (AUTO) 0.8 % (0-1); EOSINOPHILS # (AUTO) 0.8 X10'3 (0-0.9); EOSINOPHILS % (AUTO) 3.6 % (0-6); HEMATOCRIT 25.8 % (35.0-45.0); HEMOGLOBIN 8.7 g/dl (12.0-16.0); LYMPHOCYTES # (AUTO) 2.1 X10'3 (1.1-4.8); LYMPHOCYTES % (AUTO) 9.1 % (21-51); MEAN CORPUSCULAR HEMOGLOBIN 34.2 PG (27.0-31.0); MEAN CORPUSCULAR HGB CONC 33.5 g/dL (33.0-36.5); MEAN PLATELET VOLUME 11.4 FL (7.4-10.4); MONOCYTES # (AUTO) 1.5 X10'3 (0-0.9); MONOCYTES % (AUTO) 6.6 % (2-12); NEUTROPHILS # (AUTO) 18.5 X10'3 (1.8-7.7); NEUTROPHILS % (AUTO) 79.9 % (42-75); PLATELET COUNT 85 X10'3 (140-440); RED BLOOD COUNT 2.53 X10'6 (4.20-5.60); RED CELL DISTRIBUTION WIDTH 16.9 % (11.5-14.5); WHITE BLOOD COUNT 23.1 X10'3 (4.5-11.0)
[2020-06-11 20:21] LABS: BASOPHILS # (AUTO) 0.2 X10'3 (0-0.2); BASOPHILS % (AUTO) 0.7 % (0-1); EOSINOPHILS % (AUTO) 3.8 % (0-6); HEMATOCRIT 27.5 % (35.0-45.0); HEMOGLOBIN 9.2 g/dl (12.0-16.0); LYMPHOCYTES # (AUTO) 2.3 X10'3 (1.1-4.8); LYMPHOCYTES % (AUTO) 9.2 % (21-51); MEAN CORPUSCULAR HEMOGLOBIN 34.4 PG (27.0-31.0); MEAN CORPUSCULAR HGB CONC 33.6 g/dL (33.0-36.5); MEAN CORPUSCULAR VOLUME 102.4 FL (78-98); MEAN PLATELET VOLUME 11.5 FL (7.4-10.4); MONOCYTES % (AUTO) 7.8 % (2-12); NEUTROPHILS # (AUTO) 19.8 X10'3 (1.8-7.7); NEUTROPHILS % (AUTO) 78.5 % (42-75); PLATELET COUNT 89 X10'3 (140-440); RED BLOOD COUNT 2.69 X10'6 (4.20-5.60)
[2020-06-11 20:37] LABS: WHITE BLOOD COUNT 25.2 X10'3 (4.5-11.0)
[2020-06-11 22:00] VITALS: BP 132/69
[2020-06-12] VITALS (9 sets, daily range): BP systolic 101–119; BP diastolic 48–75
[2020-06-12] MEDS: HYDROmorphone/NS 1 mg/ml CADD 50 ML IV SCH ×11 (01:00→23:00)
[2020-06-12] MEDS: vancomycin 125mg/5ml ORAL solution 5ml UD bottle PO SCH ×3 (01:43→14:00)
--- NOTE | 2020-06-12 06:28 | NUR ---
Problems reprioritized. Patient report given, questions answered & plan of care reviewed with Naomi HARGROVE.
[2020-06-12 07:24] LABS: BASOPHILS # (AUTO) 0.1 X10'3 (0-0.2); BASOPHILS % (AUTO) 0.6 % (0-1); EOSINOPHILS # (AUTO) 0.7 X10'3 (0-0.9); EOSINOPHILS % (AUTO) 3.6 % (0-6); HEMATOCRIT 22.6 % (35.0-45.0); HEMOGLOBIN 7.5 g/dl (12.0-16.0); LYMPHOCYTES # (AUTO) 1.8 X10'3 (1.1-4.8); LYMPHOCYTES % (AUTO) 9.4 % (21-51); MEAN CORPUSCULAR HEMOGLOBIN 34.3 PG (27.0-31.0); MEAN CORPUSCULAR HGB CONC 33.2 g/dL (33.0-36.5); MEAN CORPUSCULAR VOLUME 103.1 FL (78-98); MEAN PLATELET VOLUME 11.8 FL (7.4-10.4); MONOCYTES # (AUTO) 1.2 X10'3 (0-0.9); MONOCYTES % (AUTO) 6.1 % (2-12); NEUTROPHILS # (AUTO) 15.2 X10'3 (1.8-7.7); NEUTROPHILS % (AUTO) 80.3 % (42-75); PLATELET COUNT 89 X10'3 (140-440); RED BLOOD COUNT 2.19 X10'6 (4.20-5.60); RED CELL DISTRIBUTION WIDTH 17.5 % (11.5-14.5)
[2020-06-12 07:28] LABS: ALBUMIN 2.5 G/DL (3.4-5.0); ANION GAP 7 (8-16); BLOOD UREA NITROGEN 6 MG/DL (7-18); BUN/CREATININE RATIO 7.1 (6.6-38.0); CHLORIDE 98 MMOL/L (99-107); CREATININE 0.85 MG/DL (0.40-0.90); GLUCOSE 166 MG/DL (70-104); SODIUM 127 MMOL/L (135-145); eGFR 71 ML/MIN
[2020-06-12 07:36] LABS: POTASSIUM 3.2 MMOL/L (3.5-5.1)
[2020-06-12] MEDS: K and/or MAG REPLACEMENT MC SCH ×2 (08:00→19:43)
[2020-06-12] MEDS: furosemide 20 MG/2 ML vial IV SCH ×2 (08:00→19:28)
[2020-06-12] MEDS: metoprolol succinate 25mg (24-HOUR) SR. Tablet PO SCH (08:00)
[2020-06-12 08:37] LABS: ANISOCYTOSIS 1+; NUCLEATED RED BLOOD CELLS 1 /100WBC (0-0); PLATELET ESTIMATE DECREASED; TOTAL CELLS COUNTED 100
[2020-06-12 08:38] LABS: BURR CELLS 1+; HYPOCHROMASIA 1+; POLYCHROMASIA 1+; TARGET CELLS 1+
[2020-06-12 08:45] LABS: MAGNESIUM 1.3 MG/DL (1.5-2.4)
--- NOTE | 2020-06-12 08:59 | NUR ---
PAGER ID: [phone] MESSAGE: Naomi Brooke5 re bernard Sherwood in [id number]- mag and K low, replace per protocol? Also, h/h down to 7.5/22.6 today. heavy rectal bleeding. Surgical consult? please call when you can
[2020-06-12] MEDS: lactobacillus rhamnosus 10,000 MMU CELLS/CAPSULE PO SCH ×2 (09:11→19:29)
[2020-06-12] MEDS: pantoprazole 40mg Tablet.DR PO SCH ×2 (09:11→19:29)
[2020-06-12] MEDS: albumin (human) 25% 100ml IV 100 ML IV SCH ×2 (09:11→19:30)
[2020-06-12] MEDS ORDERED: potassium Cl 20 mEq SR tablet PO ONE (09:20)
[2020-06-12] MEDS: ondansetron/PF 4mg/2ml inj IV PRN (09:31)
[2020-06-12 11:05] LABS: C DIFF ANTIGEN NEGATIVE (NEGATIVE); C DIFF SPECIMEN=DIARRHEA? ACCEPTABLE; C DIFFICILE TOXINS A&B NEGATIVE (Neg)
--- NOTE | 2020-06-12 11:54 | NUR ---
PAGER ID: [phone] MESSAGE: Naomi [phone] re Coco Sherwood- pls see ammonia and CXR results. I have been unable to contact IR so far.
[2020-06-12] MEDS: magnesium oxide 400mg tablet PO SCH ×2 (13:25→19:29)
[2020-06-12] MEDS: normal saline 1000ml 1,000 ML IV SCH (13:26)
[2020-06-12 14:41] LABS: GLUCOSE,BODY FLUID 198 MG/DL; LDH,BODY FLUID 53 U/L
[2020-06-12 14:51] LABS: TOTAL PROTEIN,BODY FLUID < 2.0 G/DL
[2020-06-12 14:52] LABS: LYMPHOCYTES,BODY FLUID 8 %; MONOCYTES,BODY FLUID 69 %; NEUTROPHILS,BODY FLUID 23 %
[2020-06-12 14:53] LABS: BF MESOTHELIAL CELLS OCCASIONAL; BF RBC COUNT 8 /CU MM; BF WBC COUNT 61 /CU MM (0-1000); BFAPPEAR CLEAR; BFCOLOR YELLOW; BFVOLUME 63 ML
--- NOTE | 2020-06-12 15:58 | NUR ---
PAGER ID: [phone] MESSAGE: caryl Cox9 Coco Beltran in [id number]- please call to discuss when you can. Thank you
--- NOTE | 2020-06-12 15:59 | NUR ---
Reassessment: Appetite improved, eating 75% average. s/p paracentesis. Will continue to follow. Rec: 1. continue sodium restricted diet 2. ensure enlive TIDWM if PO declines 3. bowel care per rx 4. weekly scaled wts Addendum: 06/12/20 at [address] Amended: Links added.
[2020-06-12 19:13] LABS: BASOPHILS # (AUTO) 0.1 X10'3 (0-0.2); BASOPHILS % (AUTO) 0.3 % (0-1); EOSINOPHILS # (AUTO) 0.5 X10'3 (0-0.9); EOSINOPHILS % (AUTO) 2.6 % (0-6); LYMPHOCYTES # (AUTO) 1.6 X10'3 (1.1-4.8); LYMPHOCYTES % (AUTO) 8.4 % (21-51); MEAN CORPUSCULAR HEMOGLOBIN 34.4 PG (27.0-31.0); MEAN CORPUSCULAR HGB CONC 33.1 g/dL (33.0-36.5); MEAN CORPUSCULAR VOLUME 103.9 FL (78-98); MEAN PLATELET VOLUME 11.4 FL (7.4-10.4); MONOCYTES # (AUTO) 1.4 X10'3 (0-0.9); MONOCYTES % (AUTO) 7.5 % (2-12); NEUTROPHILS # (AUTO) 15.4 X10'3 (1.8-7.7); NEUTROPHILS % (AUTO) 81.2 % (42-75); PLATELET COUNT 85 X10'3 (140-440); RED BLOOD COUNT 1.98 X10'6 (4.20-5.60); RED CELL DISTRIBUTION WIDTH 19.6 % (11.5-14.5)
[2020-06-12 19:29] LABS: HEMATOCRIT 20.6 % (35.0-45.0); HEMOGLOBIN 6.8 g/dl (12.0-16.0)
[2020-06-12] MEDS: lactulose 20gm/30ml cup PO SCH (19:31)
[2020-06-13] VITALS (14 sets, daily range): BP systolic 75–128; BP diastolic 32–71
[2020-06-13] MEDS: HYDROmorphone/NS 1 mg/ml CADD 50 ML IV SCH ×12 (01:00→23:00)
[2020-06-13 06:04] LABS: ALBUMIN 2.9 G/DL (3.4-5.0); ANION GAP 8 (8-16); BLOOD UREA NITROGEN 4 MG/DL (7-18); BUN/CREATININE RATIO 7.5 (6.6-38.0); CALCIUM 8.4 MG/DL (8.5-10.1); CHLORIDE 99 MMOL/L (99-107); CREATININE 0.53 MG/DL (0.40-0.90); GLUCOSE 135 MG/DL (70-104); SODIUM 131 MMOL/L (135-145); TOTAL CARBON DIOXIDE 24.2 MMOL/L (24-32); eGFR > 90 ML/MIN
[2020-06-13 06:05] LABS: POTASSIUM 3.2 MMOL/L (3.5-5.1)
[2020-06-13 06:10] LABS: BASOPHILS # (AUTO) 0.1 X10'3 (0-0.2); BASOPHILS % (AUTO) 0.4 % (0-1); EOSINOPHILS # (AUTO) 0.6 X10'3 (0-0.9); EOSINOPHILS % (AUTO) 2.8 % (0-6); HEMATOCRIT 22.7 % (35.0-45.0); HEMOGLOBIN 7.8 g/dl (12.0-16.0); LYMPHOCYTES # (AUTO) 1.7 X10'3 (1.1-4.8); LYMPHOCYTES % (AUTO) 8.4 % (21-51); MEAN CORPUSCULAR HEMOGLOBIN 34.4 PG (27.0-31.0); MEAN CORPUSCULAR HGB CONC 34.4 g/dL (33.0-36.5); MEAN CORPUSCULAR VOLUME 99.9 FL (78-98); MEAN PLATELET VOLUME 11.2 FL (7.4-10.4); MONOCYTES # (AUTO) 1.3 X10'3 (0-0.9); MONOCYTES % (AUTO) 6.7 % (2-12); NEUTROPHILS % (AUTO) 81.7 % (42-75); PLATELET COUNT 69 X10'3 (140-440); RED BLOOD COUNT 2.27 X10'6 (4.20-5.60); RED CELL DISTRIBUTION WIDTH 16.1 % (11.5-14.5); WHITE BLOOD COUNT 19.6 X10'3 (4.5-11.0)
--- NOTE | 2020-06-13 06:35 | NUR ---
Patient in room ORTHO 4013. I have received report from Ashlie Henriquez and had the opportunity to ask questions and assume patient care.
--- NOTE | 2020-06-13 06:39 | NUR ---
Problems reprioritized. Patient report given, questions answered & plan of care reviewed with DELVIN Prakash.
[2020-06-13 07:20] LABS: ANISOCYTOSIS 2+; PLATELET ESTIMATE DECREASED; POLYCHROMASIA FEW; TARGET CELLS FEW
[2020-06-13 07:36] LABS: ANISOCYTOSIS 1+; LARGE PLATELETS FEW; PLATELET ESTIMATE DECREASED; POIKILOCYTOSIS FEW
[2020-06-13] MEDS: lactobacillus rhamnosus 10,000 MMU CELLS/CAPSULE PO SCH ×2 (07:49→19:00)
[2020-06-13] MEDS: pantoprazole 40mg Tablet.DR PO SCH ×2 (07:49→19:00)
[2020-06-13] MEDS: metoprolol succinate 25mg (24-HOUR) SR. Tablet PO SCH (07:49)
[2020-06-13] MEDS: magnesium oxide 400mg tablet PO SCH ×2 (07:49→19:00)
[2020-06-13] MEDS: furosemide 20 MG/2 ML vial IV SCH ×2 (07:56→19:55)
[2020-06-13] MEDS: K and/or MAG REPLACEMENT MC SCH ×3 (08:00→19:07)
[2020-06-13] MEDS: albumin (human) 25% 100ml IV 100 ML IV SCH (08:08)
[2020-06-13] MEDS: lactulose 20gm/30ml cup PO SCH (08:09)
[2020-06-13] MEDS: CADD PCA waste documentation MC SCH (10:54)
[2020-06-13 12:13] LABS: BASOPHILS # (AUTO) 0.1 X10'3 (0-0.2); BASOPHILS % (AUTO) 0.3 % (0-1); EOSINOPHILS # (AUTO) 0.4 X10'3 (0-0.9); EOSINOPHILS % (AUTO) 2.2 % (0-6); LYMPHOCYTES # (AUTO) 1.3 X10'3 (1.1-4.8); LYMPHOCYTES % (AUTO) 7.6 % (21-51); MEAN CORPUSCULAR HGB CONC 34.4 g/dL (33.0-36.5); MEAN PLATELET VOLUME 10.7 FL (7.4-10.4); MONOCYTES % (AUTO) 6.3 % (2-12); NEUTROPHILS # (AUTO) 13.9 X10'3 (1.8-7.7); NEUTROPHILS % (AUTO) 83.6 % (42-75); PLATELET COUNT 58 X10'3 (140-440); RED BLOOD COUNT 1.61 X10'6 (4.20-5.60); RED CELL DISTRIBUTION WIDTH 16.6 % (11.5-14.5); WHITE BLOOD COUNT 16.6 X10'3 (4.5-11.0)
[2020-06-13 12:18] LABS: HEMOGLOBIN 5.5 g/dl (12.0-16.0)
--- NOTE | 2020-06-13 12:22 | NUR ---
PAGER ID: [phone] MESSAGE: Olinda Sarmiento on neuro, critical H&H for Ms. Sherwood .16.0, please advise # [phone]
[2020-06-13] MEDS: octreotide 100mcg/1 ml ampule SQ SCH ×2 (16:56→23:49)
[2020-06-13] MEDS ORDERED: potassium Cl 20 mEq SR tablet PO PRN (18:10)
[2020-06-13] MEDS ORDERED: magnesium 4gm in 100ml NS 100 ML IV PRN (18:10)
[2020-06-13] MEDS: lactose-reduced food (Ensure Enlive) - 237ml bottle PO SCH (18:21)
[2020-06-13 18:24] LABS: MAGNESIUM 1.2 MG/DL (1.5-2.4); POTASSIUM 3.1 MMOL/L (3.5-5.1)
--- NOTE | 2020-06-13 18:25 | NUR ---
PAGER ID: [phone] MESSAGE: Olinda Sarmiento on neuro, Ms. Sherwood in [id number] has BPs of 75/32 & 78/56 just FYI, currently sitting up and eating
--- NOTE | 2020-06-13 18:25 | NUR ---
Problems reprioritized. Patient report given, questions answered & plan of care reviewed with Ashlie Henriquez
[2020-06-13 18:40] LABS: MEAN CORPUSCULAR HEMOGLOBIN 34.9 PG (27.0-31.0); MEAN CORPUSCULAR HGB CONC 34.4 g/dL (33.0-36.5); MEAN CORPUSCULAR VOLUME 101.5 FL (78-98); MEAN PLATELET VOLUME 11.3 FL (7.4-10.4); PLATELET COUNT 60 X10'3 (140-440); RED BLOOD COUNT 1.45 X10'6 (4.20-5.60); RED CELL DISTRIBUTION WIDTH 17.1 % (11.5-14.5); WHITE BLOOD COUNT 18.5 X10'3 (4.5-11.0)
[2020-06-13 18:43] LABS: HEMOGLOBIN 5.1 g/dl (12.0-16.0)
[2020-06-13] MEDS: magnesium Cl slow-release 64mg tablet PO PRN ×2 (19:00→23:48)
[2020-06-13] MEDS: potassium Cl 20 mEq SR tablet PO PRN ×2 (19:00→23:48)
--- NOTE | 2020-06-13 19:03 | NUR ---
started replacing K++ and Mag++. transfusion going. Call out to MD to clarify if he wants Lactulose given and for critical results of H/H.
[2020-06-14] VITALS (10 sets, daily range): BP systolic 100–121; BP diastolic 60–77
[2020-06-14 00:59] LABS: HEMATOCRIT 25.3 % (35.0-45.0); HEMOGLOBIN 8.6 g/dl (12.0-16.0); MEAN CORPUSCULAR HEMOGLOBIN 31.9 PG (27.0-31.0); MEAN CORPUSCULAR HGB CONC 33.9 g/dL (33.0-36.5); MEAN PLATELET VOLUME 8.6 FL (7.4-10.4); RED BLOOD COUNT 2.69 X10'6 (4.20-5.60); RED CELL DISTRIBUTION WIDTH 15.4 % (11.5-14.5); WHITE BLOOD COUNT 18.9 X10'3 (4.5-11.0)
[2020-06-14] MEDS: HYDROmorphone/NS 1 mg/ml CADD 50 ML IV SCH ×10 (01:00→23:00)
[2020-06-14 01:18] LABS: PLATELET COUNT 7 X10'3 (140-440)
[2020-06-14 04:36] LABS: HEMATOCRIT 14.7 % (35.0-45.0)
--- NOTE | 2020-06-14 06:08 | NUR ---
Problems reprioritized. Patient report given, questions answered & plan of care reviewed with DELVIN Pride.
[2020-06-14 06:31] LABS: BASOPHILS # (AUTO) 0.1 X10'3 (0-0.2); BASOPHILS % (AUTO) 0.4 % (0-1); EOSINOPHILS # (AUTO) 0.6 X10'3 (0-0.9); EOSINOPHILS % (AUTO) 3.2 % (0-6); HEMATOCRIT 27.3 % (35.0-45.0); HEMOGLOBIN 9.2 g/dl (12.0-16.0); LYMPHOCYTES # (AUTO) 1.9 X10'3 (1.1-4.8); LYMPHOCYTES % (AUTO) 9.5 % (21-51); MEAN CORPUSCULAR HEMOGLOBIN 31.5 PG (27.0-31.0); MEAN CORPUSCULAR HGB CONC 33.8 g/dL (33.0-36.5); MEAN CORPUSCULAR VOLUME 93.2 FL (78-98); MEAN PLATELET VOLUME 10.3 FL (7.4-10.4); MONOCYTES # (AUTO) 1.3 X10'3 (0-0.9); MONOCYTES % (AUTO) 6.7 % (2-12); NEUTROPHILS # (AUTO) 15.8 X10'3 (1.8-7.7); NEUTROPHILS % (AUTO) 80.2 % (42-75); RED BLOOD COUNT 2.93 X10'6 (4.20-5.60); RED CELL DISTRIBUTION WIDTH 15.2 % (11.5-14.5); WHITE BLOOD COUNT 19.7 X10'3 (4.5-11.0)
[2020-06-14 06:39] LABS: ALBUMIN 2.3 G/DL (3.4-5.0); ANION GAP 9 (8-16); BLOOD UREA NITROGEN 4 MG/DL (7-18); BUN/CREATININE RATIO 7.7 (6.6-38.0); CALCIUM 7.6 MG/DL (8.5-10.1); CHLORIDE 102 MMOL/L (99-107); CREATININE 0.52 MG/DL (0.40-0.90); MAGNESIUM 1.3 MG/DL (1.5-2.4); SODIUM 134 MMOL/L (135-145); TOTAL CARBON DIOXIDE 22.8 MMOL/L (24-32); eGFR > 90 ML/MIN
[2020-06-14 06:41] LABS: GLUCOSE 164 MG/DL (70-104); POTASSIUM 3.6 MMOL/L (3.5-5.1)
[2020-06-14 06:51] LABS: PLATELET COUNT 54 X10'3 (140-440)
[2020-06-14] MEDS: K and/or MAG REPLACEMENT MC SCH ×4 (08:00→20:00)
[2020-06-14] MEDS: lactose-reduced food (Ensure Enlive) - 237ml bottle PO SCH ×3 (08:00→18:00)
[2020-06-14] MEDS: octreotide 100mcg/1 ml ampule SQ SCH ×2 (08:00→15:57)
[2020-06-14] MEDS: furosemide 20 MG/2 ML vial IV SCH ×2 (08:39→21:03)
[2020-06-14] MEDS: lactobacillus rhamnosus 10,000 MMU CELLS/CAPSULE PO SCH ×3 (08:41→21:02)
[2020-06-14] MEDS: magnesium oxide 400mg tablet PO SCH ×3 (08:41→21:02)
[2020-06-14] MEDS: pantoprazole 40mg Tablet.DR PO SCH ×3 (08:41→21:02)
[2020-06-14] MEDS: metoprolol succinate 25mg (24-HOUR) SR. Tablet PO SCH (08:43)
[2020-06-14] MEDS: normal saline 1000ml 1,000 ML IV SCH (09:55)
[2020-06-14 12:32] LABS: HEMATOCRIT 28.6 % (35.0-45.0); HEMOGLOBIN 9.8 g/dl (12.0-16.0); MEAN CORPUSCULAR HEMOGLOBIN 31.8 PG (27.0-31.0); MEAN CORPUSCULAR HGB CONC 34.3 g/dL (33.0-36.5); MEAN CORPUSCULAR VOLUME 92.8 FL (78-98); MEAN PLATELET VOLUME 10.6 FL (7.4-10.4); PLATELET COUNT 75 X10'3 (140-440); RED BLOOD COUNT 3.08 X10'6 (4.20-5.60); WHITE BLOOD COUNT 22.1 X10'3 (4.5-11.0)
[2020-06-14] MEDS: lactulose 20gm/30ml cup PO SCH ×3 (15:56→21:14)
[2020-06-14] MEDS: ondansetron/PF 4mg/2ml inj IV PRN (17:20)
[2020-06-14 18:48] LABS: HEMATOCRIT 30.6 % (35.0-45.0); HEMOGLOBIN 10.5 g/dl (12.0-16.0); MEAN CORPUSCULAR HEMOGLOBIN 31.8 PG (27.0-31.0); MEAN CORPUSCULAR HGB CONC 34.2 g/dL (33.0-36.5); MEAN PLATELET VOLUME 9.9 FL (7.4-10.4); PLATELET COUNT 91 X10'3 (140-440); RED BLOOD COUNT 3.29 X10'6 (4.20-5.60); RED CELL DISTRIBUTION WIDTH 15.6 % (11.5-14.5); WHITE BLOOD COUNT 24.7 X10'3 (4.5-11.0)
[2020-06-14] MEDS ORDERED: lactulose 20gm/30ml cup PO SCH (20:00)
--- NOTE | 2020-06-14 21:25 | NUR ---
MESSAGE: [id number] JADEN KRUGER, HERE FOR GI BLEED, IS NAUSEATED AND THROWING UP. SHE RECEIVED ZOFRAN 3HRS AGO. CAN SHE HAVE SOMETHING ELSE FOR SAUSEA? FROM [address].
[2020-06-14] MEDS ORDERED: proCHLORperazine 10 MG/2 ml inj IV PRN (21:30)
--- NOTE | 2020-06-14 23:19 | NUR ---
MESSAGE: [id number] JESSE TOLLIVER, HERE FOR GI BLEED. FYI, PT IS VERY SOMNOLENT. AROUSABLE BUT NOT STAY AWAKE TO TAKE MEDS. ON DILAUDID CADD SO STOPPED FOR NOW. VSS 116/60 HR84 99%ON RA, RR16. FROM [address]
--- NOTE | 2020-06-14 23:30 | NUR ---
DR JENSEN CALLED BACK AND ORDERED TO STOP CONTINEOUS ON CADD PUMP. WHILE CHANGING CADD PUMP, I CLEARED DATA EXCEPT FOR RESIDUAL DOSE BY MISTAKE.
[2020-06-15] VITALS (7 sets, daily range): BP systolic 98–110; BP diastolic 43–72
[2020-06-15] MEDS: octreotide 100mcg/1 ml ampule SQ SCH (00:05)
[2020-06-15] MEDS: HYDROmorphone/NS 1 mg/ml CADD 50 ML IV SCH ×3 (01:00→05:00)
[2020-06-15 01:47] LABS: HEMATOCRIT 28.4 % (35.0-45.0); HEMOGLOBIN 9.9 g/dl (12.0-16.0); MEAN CORPUSCULAR HEMOGLOBIN 32.7 PG (27.0-31.0); MEAN CORPUSCULAR HGB CONC 34.8 g/dL (33.0-36.5); MEAN CORPUSCULAR VOLUME 93.9 FL (78-98); MEAN PLATELET VOLUME 10.1 FL (7.4-10.4); PLATELET COUNT 88 X10'3 (140-440); RED BLOOD COUNT 3.03 X10'6 (4.20-5.60); RED CELL DISTRIBUTION WIDTH 15.4 % (11.5-14.5); WHITE BLOOD COUNT 24.4 X10'3 (4.5-11.0)
--- NOTE | 2020-06-15 01:50 | NUR ---
4013B JADEN TOLLIVER 48 GI BLEED. PT STILL SOMNOLENT. AMMONIA IS 149 BUT CAN'T TAKE LACTULOSE. ALSO PT RECEIVED LASIX AT 2030 BUT NOT VOIDED. BLADDER SCAN SHOWED 630CC. OK TO STRAIGHT CATH? VS AND BLOOD SUGAR IS FINE. FROM [address]
[2020-06-15] MEDS: lactulose 20gm/30ml cup PO SCH ×5 (02:00→23:26)
--- NOTE | 2020-06-15 02:00 | NUR ---
DR BOLTON CALLED BACK AND NOTIFIED MENTAL STATUS OF PT. ORDERED MARRERO CATHETER.
--- NOTE | 2020-06-15 04:33 | NUR ---
MESSAGE: [id number] JADEN KRUGER 24 SHE IS AROUSABLE BUT NOT ANSWERING. WONDERING I SHOULD PUT NG TUBE SO THAT SHE CAN HAVE LACTULOSE. FROM [address]
[2020-06-15 06:21] LABS: CHLORIDE 100 MMOL/L (99-107); MAGNESIUM 1.5 MG/DL (1.5-2.4); SODIUM 134 MMOL/L (135-145)
--- NOTE | 2020-06-15 06:22 | NUR ---
Problems reprioritized. Patient report given, questions answered & plan of care reviewed with DELVIN GEORGE.
[2020-06-15 06:25] LABS: BASOPHILS % (AUTO) 0.2 % (0-1); EOSINOPHILS # (AUTO) 0.1 X10'3 (0-0.9); EOSINOPHILS % (AUTO) 0.4 % (0-6); HEMATOCRIT 26.7 % (35.0-45.0); HEMOGLOBIN 9.2 g/dl (12.0-16.0); LYMPHOCYTES # (AUTO) 1.3 X10'3 (1.1-4.8); LYMPHOCYTES % (AUTO) 6.2 % (21-51); MEAN CORPUSCULAR HEMOGLOBIN 32.2 PG (27.0-31.0); MEAN CORPUSCULAR HGB CONC 34.3 g/dL (33.0-36.5); MEAN CORPUSCULAR VOLUME 93.8 FL (78-98); MEAN PLATELET VOLUME 9.9 FL (7.4-10.4); MONOCYTES # (AUTO) 1.3 X10'3 (0-0.9); MONOCYTES % (AUTO) 6.1 % (2-12); NEUTROPHILS % (AUTO) 87.1 % (42-75); PLATELET COUNT 96 X10'3 (140-440); RED BLOOD COUNT 2.85 X10'6 (4.20-5.60); RED CELL DISTRIBUTION WIDTH 15.5 % (11.5-14.5); WHITE BLOOD COUNT 20.6 X10'3 (4.5-11.0)
--- NOTE | 2020-06-15 06:27 | NUR ---
Patient in room ORTHO 4013. I have received report from Dragan and had the opportunity to ask questions and assume patient care.
--- NOTE | 2020-06-15 06:39 | NUR ---
Patient in room ORTHO 4013. I have received report from Dragan and had the opportunity to ask questions and assume patient care.
[2020-06-15 07:04] LABS: ALBUMIN 2.3 G/DL (3.4-5.0); ANION GAP 12 (8-16); BLOOD UREA NITROGEN 5 MG/DL (7-18); BUN/CREATININE RATIO 6.3 (6.6-38.0); CALCIUM 8.2 MG/DL (8.5-10.1); GLUCOSE 136 MG/DL (70-104); POTASSIUM 3.7 MMOL/L (3.5-5.1); TOTAL CARBON DIOXIDE 22.2 MMOL/L (24-32); eGFR 77 ML/MIN
--- NOTE | 2020-06-15 07:16 | NUR ---
called by ortho RNs to come and look at pt. Pt altered slowly localizes to pain. ammonia level 161. lactulose had been held previously d/t gi bleeding but given today. reports continues to gi bleed. I ordered coags per rapid response policy since none has been done since 06/05 with active gi bleeding and esld.
[2020-06-15 07:48] LABS: PARTIAL THROMBOPLASTIN TIME 46 SECONDS (22-32)
--- NOTE | 2020-06-15 07:48 | NUR ---
Unable to give patient Lasix due to BP 95/52 HR 94 o2 94 Patient lactulose last given at 5:20am and its to soon to give another dose. Paged Dr Hobbs asking to give a early dose. Concerned about patient charge called ICU charge nurse to take a look at patient. ICU charge nurse ordered labs, labs are still pending. will continue to monitor.
--- NOTE | 2020-06-15 07:53 | NUR ---
PAGER ID: [phone] MESSAGE: [id number] Coco Sherwood pt lactulose up from 149 to 161. noc shift was only able to get 1 dose in at 5:20 am in her after NG was placed. Can I give her another dose now? #[phone] Shannen
[2020-06-15] MEDS: pantoprazole 40mg Tablet.DR PO SCH ×2 (08:00→19:59)
[2020-06-15] MEDS: magnesium oxide 400mg tablet PO SCH ×2 (08:00→19:59)
[2020-06-15] MEDS: lactobacillus rhamnosus 10,000 MMU CELLS/CAPSULE PO SCH ×2 (08:00→19:59)
[2020-06-15] MEDS: lactose-reduced food (Ensure Enlive) - 237ml bottle PO SCH ×2 (08:00→13:00)
[2020-06-15] MEDS: K and/or MAG REPLACEMENT MC SCH ×3 (08:00→20:00)
[2020-06-15] MEDS: metoprolol succinate 25mg (24-HOUR) SR. Tablet PO SCH (08:00)
[2020-06-15] MEDS: furosemide 20 MG/2 ML vial IV SCH ×3 (08:00→20:00)
[2020-06-15] MEDS ORDERED: lactulose 20gm/30ml cup PO SCH (08:57)
[2020-06-15] MEDS: pantoprazole 40 MG vial IV SCH ×2 (09:17→19:59)
[2020-06-15] MEDS: CADD PCA waste documentation MC SCH (10:04)
--- NOTE | 2020-06-15 11:29 | NUR ---
Page Sent PAGER ID: [phone] MESSAGE: [id number] spoke with pt mom Montrell she would like a update [phone]. #[phone] Shannen (77 character message out of a maximum of 240)
[2020-06-15 11:49] LABS: HEMATOCRIT 27.3 % (35.0-45.0); HEMOGLOBIN 9.5 g/dl (12.0-16.0); MEAN CORPUSCULAR HEMOGLOBIN 32.8 PG (27.0-31.0); MEAN CORPUSCULAR HGB CONC 34.9 g/dL (33.0-36.5); MEAN CORPUSCULAR VOLUME 94.2 FL (78-98); MEAN PLATELET VOLUME 9.3 FL (7.4-10.4); PLATELET COUNT 111 X10'3 (140-440); RED BLOOD COUNT 2.89 X10'6 (4.20-5.60); RED CELL DISTRIBUTION WIDTH 15.4 % (11.5-14.5); WHITE BLOOD COUNT 19.7 X10'3 (4.5-11.0)
--- NOTE | 2020-06-15 11:55 | NUR ---
PAGER ID: [phone] MESSAGE: [id number] Pt lungs crackly put on 2L n/c oxygen went up from 88 to 92. Can I get a RT eval and treat? #[phone] Shannen (109 character message out of a maximum of 240)
--- NOTE | 2020-06-15 12:04 | NUR ---
Student documentation: I have reviewed and agree with all interventions, assessments performed and documented by Cristobal Reeves.
[2020-06-15 12:05] LABS: ALANINE AMINOTRANSFERASE 15 U/L (12-78); ALBUMIN 2.4 G/DL (3.4-5.0); ALKALINE PHOSPHATASE 131 IU/L (46-116); BILIRUBIN,TOTAL 21.1 MG/DL (0.1-1.0)
[2020-06-15 12:37] LABS: ASPARTATE AMINO TRANSFERASE 35 U/L (10-37)
[2020-06-15 12:39] LABS: BILIRUBIN,DIRECT 15.2 MG/DL (0-0.3)
[2020-06-15 12:53] LABS: TOTAL PROTEIN 4.6 G/DL (6.4-8.2)
--- NOTE | 2020-06-15 15:39 | NUR ---
Reassessment: PO intake decreased 50-75% of meals, 0-25% of ONS, and further decreased past day PO intake 0% meals. Pt s/p rapid response this AM. Pt now NPO, is obtunded w/ NG tube placed today (06/15). Noted ammonia 161 H, receiving routine lactulose since 06/14. RD d/w nurse regarding Vitamin B12 and MVI supplementation via NG tube given history, if MD agreeable. Pt has GI bleed, per MD note. Will continue to monitor for nutrition support needs if prolonged NPO. Rec: 1. Advance diet as medically indicated to regular 2. bowel care per rx; receiving routine lactulose ammonia 161H 3. weekly scaled wts 4. If prolonged NPO with GIB, consider PN for nutrition needs 5. If to remain NPO w/ NG and GI intact, consider EN for nutrition needs Addendum: 06/15/20 at [address] Amended: Links added. Addendum: 06/15/20 at [address] [facility]
--- NOTE | 2020-06-15 17:00 | NUR ---
Patient rectal tube came out. Will try again when stools are more loose
--- NOTE | 2020-06-15 18:19 | NUR ---
Problems reprioritized. Patient report given, questions answered & plan of care reviewed with katerina.
[2020-06-15 19:00] LABS: CLARITY,URINE CLOUDY (Clear); COLOR,URINE AMBER (Yellow); GLUCOSE, URINE NEGATIVE (Neg); KETONES,URINE TRACE mg/dl (Neg); LEUKOCYTE ESTERASE ,URINE TRACE (Neg); NITRITES, URINE NEGATIVE (Neg); OCCULT BLOOD,URINE MODERATE (Neg); PH,URINE 5.5 (4.8-8.0); PROTEIN,URINE 30 mg/dl (Neg)
[2020-06-15 19:10] LABS: UA COLLECTION TYPE NON-SPECIFIED
[2020-06-15 19:39] LABS: BACTERIA,URINE 1+ /HPF (Neg); MUCUS STRANDS MANY /LPF (Neg); RENAL CELLS, URINE FEW /HPF; SQUAMOUS EPITHELIAL CELL,UR FEW /LPF (FEW); TRANSITIONAL EPI CELLS,URINE MANY /HPF
[2020-06-15 19:40] LABS: AMORPHOUS URATES 1+
--- NOTE | 2020-06-16 03:34 | NUR ---
MESSAGE: [id number] JADEN KRUGER 44 GI BLEED. FYI, PT URINE OP IS ONLY 90CC OVER 9HRS. WASN'T ABLE TO GIVE LASIX DUE TO LOW BP. BUT PT HAS MEASURABLE 1100CC+ YELOW CLEAR STOOL. THANK YOU. FROM [address]
[2020-06-16 03:35] VITALS: BP 83/52
--- NOTE | 2020-06-16 03:38 | NUR ---
DR. HILL CALLED BACK REGARDING LOW URINE OUTPUT. JUST MONITOR FOR NOW PER .
[2020-06-16] MEDS: lactulose 20gm/30ml cup PO SCH ×6 (03:42→23:54)
[2020-06-16 06:00] VITALS: BP 92/59
--- NOTE | 2020-06-16 06:22 | NUR ---
Patient in room ORTHO 4013. I have received report from Dragan and had the opportunity to ask questions and assume patient care.
--- NOTE | 2020-06-16 06:26 | NUR ---
Problems reprioritized. Patient report given, questions answered & plan of care reviewed with DELVIN GEORGE.
[2020-06-16 06:44] LABS: BASOPHILS # (AUTO) 0.1 X10'3 (0-0.2); BASOPHILS % (AUTO) 0.3 % (0-1); EOSINOPHILS # (AUTO) 0.1 X10'3 (0-0.9); EOSINOPHILS % (AUTO) 0.5 % (0-6); HEMATOCRIT 25.5 % (35.0-45.0); HEMOGLOBIN 8.7 g/dl (12.0-16.0); LYMPHOCYTES % (AUTO) 8.9 % (21-51); MEAN CORPUSCULAR HEMOGLOBIN 32.5 PG (27.0-31.0); MEAN CORPUSCULAR HGB CONC 34.2 g/dL (33.0-36.5); MEAN PLATELET VOLUME 9.7 FL (7.4-10.4); MONOCYTES # (AUTO) 1.6 X10'3 (0-0.9); MONOCYTES % (AUTO) 7.3 % (2-12); NEUTROPHILS # (AUTO) 18.3 X10'3 (1.8-7.7); PLATELET COUNT 111 X10'3 (140-440); RED BLOOD COUNT 2.69 X10'6 (4.20-5.60); RED CELL DISTRIBUTION WIDTH 15.3 % (11.5-14.5)
[2020-06-16 07:05] LABS: ALANINE AMINOTRANSFERASE 14 U/L (12-78); ALBUMIN 2.1 G/DL (3.4-5.0); ALKALINE PHOSPHATASE 126 IU/L (46-116); ANION GAP 14 (8-16); BILIRUBIN,TOTAL 17.3 MG/DL (0.1-1.0); BLOOD UREA NITROGEN 9 MG/DL (7-18); CALCIUM 8.8 MG/DL (8.5-10.1); CHLORIDE 110 MMOL/L (99-107); MAGNESIUM 1.7 MG/DL (1.5-2.4); SODIUM 145 MMOL/L (135-145); TOTAL CARBON DIOXIDE 20.9 MMOL/L (24-32)
[2020-06-16 07:06] LABS: ALBUMIN/GLOBULIN RATIO 1.1 (1.1-1.5); ASPARTATE AMINO TRANSFERASE 40 U/L (10-37); BUN/CREATININE RATIO 5.6 (6.6-38.0); GLUCOSE 161 MG/DL (70-104); POTASSIUM 3.1 MMOL/L (3.5-5.1); TOTAL PROTEIN 4.1 G/DL (6.4-8.2); eGFR 34 ML/MIN
--- NOTE | 2020-06-16 07:52 | NUR ---
promotional table spacer PAGER ID: [phone] MESSAGE: [id number] Coco Sherwood Pt ammonia down to 25 output for rectal tube was over 3,000 ML Do you want to continue 40mg Q4 lactulose? #[phone] Shannen
[2020-06-16] MEDS: lactobacillus rhamnosus 10,000 MMU CELLS/CAPSULE PO SCH ×2 (08:00→21:42)
[2020-06-16] MEDS: K and/or MAG REPLACEMENT MC SCH ×2 (08:00→21:53)
[2020-06-16] MEDS: metoprolol succinate 25mg (24-HOUR) SR. Tablet PO SCH (08:00)
[2020-06-16] MEDS: magnesium oxide 400mg tablet PO SCH ×2 (08:00→21:42)
[2020-06-16] MEDS: pantoprazole 40mg Tablet.DR PO SCH ×2 (08:00→21:42)
[2020-06-16] MEDS: furosemide 20 MG/2 ML vial IV SCH ×2 (08:00→21:49)
[2020-06-16] MEDS: potassium CL 10mEq/100ml bag 100 ML IV PRN ×3 (08:31→15:36)
[2020-06-16] MEDS: pantoprazole 40 MG vial IV SCH ×2 (08:33→21:49)
[2020-06-16] MEDS ORDERED: albumin (human) 25% 100 ML IV solution IV ONE (09:55)
[2020-06-16 10:00] VITALS: BP 126/48
[2020-06-16 11:41] VITALS: BP 126/48
--- NOTE | 2020-06-16 12:49 | NUR ---
unable to scan patients wrist band.
[2020-06-16 18:00] VITALS: BP 97/60
--- NOTE | 2020-06-16 18:51 | NUR ---
Problems reprioritized. Patient report given, questions answered & plan of care reviewed with Ashlie.
--- NOTE | 2020-06-16 19:00 | NUR ---
During initial rounding on patient it was observed that the patient had pulled out her NG to tube to her right nostril. student nurse with her instructor to attempt to replace NG tube.
--- NOTE | 2020-06-16 20:02 | NUR ---
with assistance from primary RN auscultated for NG placement. confirmed correct placement in the stomach
[2020-06-16 22:00] VITALS: BP 101/55
[2020-06-16] MEDS ORDERED: magnesium Cl slow-release 64mg tablet PO PRN (22:40)
[2020-06-16] MEDS ORDERED: potassium CL 10mEq/100ml bag 100 ML IV PRN (22:40)
[2020-06-16] MEDS ORDERED: magnesium 4gm in 100ml NS 100 ML IV PRN (22:40)
--- NOTE | 2020-06-16 22:42 | NUR ---
Page out to MD Mills regarding patient pulling out her NG tube for the second time this shift.
--- NOTE | 2020-06-16 23:07 | NUR ---
Spoke with MD Mills regarding NG tube. New orders to keep NG out and start Rifximin 550mg PO BID now.
[2020-06-16] MEDS: rifaximin 550mg tablet PO SCH (23:54)
[2020-06-17] MEDS: lactulose 20gm/30ml cup PO SCH ×4 (04:19→21:00)
[2020-06-17 06:00] VITALS: BP 107/47
--- NOTE | 2020-06-17 06:10 | NUR ---
Patient in room ORTHO 4013. I have received report from Ashlie Block and had the opportunity to ask questions and assume patient care.
[2020-06-17 07:13] LABS: MAGNESIUM 1.8 MG/DL (1.5-2.4)
[2020-06-17 07:20] LABS: POTASSIUM 2.7 MMOL/L (3.5-5.1)
--- NOTE | 2020-06-17 07:28 | NUR ---
PAGER ID: [phone] MESSAGE: Good morning, Olinda on neuro, Ms. Sherwood in [id number], just fyi, potassium is 2.7, will replace per protocol
[2020-06-17] MEDS: K and/or MAG REPLACEMENT MC SCH ×2 (07:38→20:00)
[2020-06-17] MEDS: pantoprazole 40mg Tablet.DR PO SCH ×2 (08:00→19:18)
[2020-06-17] MEDS: metoprolol succinate 25mg (24-HOUR) SR. Tablet PO SCH (08:00)
[2020-06-17] MEDS: lactobacillus rhamnosus 10,000 MMU CELLS/CAPSULE PO SCH ×2 (08:34→20:57)
[2020-06-17] MEDS: rifaximin 550mg tablet PO SCH ×2 (08:34→20:56)
[2020-06-17] MEDS: pantoprazole 40 MG vial IV SCH ×2 (08:34→20:57)
[2020-06-17] MEDS: magnesium oxide 400mg tablet PO SCH ×2 (08:34→20:57)
[2020-06-17] MEDS: potassium Cl 20 mEq SR tablet PO PRN ×3 (08:34→20:56)
[2020-06-17] MEDS: furosemide 20 MG/2 ML vial IV SCH ×2 (08:48→20:00)
[2020-06-17 09:04] LABS: BASOPHILS % (AUTO) 0.2 % (0-1); EOSINOPHILS # (AUTO) 0.2 X10'3 (0-0.9); EOSINOPHILS % (AUTO) 0.8 % (0-6); HEMATOCRIT 25.4 % (35.0-45.0); HEMOGLOBIN 8.5 g/dl (12.0-16.0); LYMPHOCYTES # (AUTO) 1.9 X10'3 (1.1-4.8); LYMPHOCYTES % (AUTO) 9.5 % (21-51); MEAN CORPUSCULAR HEMOGLOBIN 32.5 PG (27.0-31.0); MEAN CORPUSCULAR HGB CONC 33.6 g/dL (33.0-36.5); MEAN CORPUSCULAR VOLUME 96.8 FL (78-98); MEAN PLATELET VOLUME 10.4 FL (7.4-10.4); MONOCYTES # (AUTO) 1.4 X10'3 (0-0.9); MONOCYTES % (AUTO) 6.8 % (2-12); NEUTROPHILS # (AUTO) 16.5 X10'3 (1.8-7.7); NEUTROPHILS % (AUTO) 82.7 % (42-75); PLATELET COUNT 95 X10'3 (140-440); RED BLOOD COUNT 2.62 X10'6 (4.20-5.60); RED CELL DISTRIBUTION WIDTH 16.1 % (11.5-14.5)
[2020-06-17 09:21] LABS: ALBUMIN 2.4 G/DL (3.4-5.0); ANION GAP 12 (8-16); BLOOD UREA NITROGEN 13 MG/DL (7-18); BUN/CREATININE RATIO 8.8 (6.6-38.0); CALCIUM 8.9 MG/DL (8.5-10.1); CHLORIDE 116 MMOL/L (99-107); CREATININE 1.47 MG/DL (0.40-0.90); GLUCOSE 130 MG/DL (70-104); SODIUM 152 MMOL/L (135-145); TOTAL CARBON DIOXIDE 24.3 MMOL/L (24-32); eGFR 38 ML/MIN
[2020-06-17 09:22] LABS: ALANINE AMINOTRANSFERASE 16 U/L (12-78); ALKALINE PHOSPHATASE 125 IU/L (46-116); ASPARTATE AMINO TRANSFERASE 43 U/L (10-37)
[2020-06-17 09:30] LABS: ALBUMIN/GLOBULIN RATIO 1.1 (1.1-1.5); TOTAL PROTEIN 4.5 G/DL (6.4-8.2)
[2020-06-17 09:32] LABS: POTASSIUM 2.7 MMOL/L (3.5-5.1)
[2020-06-17 10:00] VITALS: BP 100/66
[2020-06-17] MEDS: HYDROmorphone 1 mg/ml syringe IV PRN ×3 (10:26→21:49)
--- NOTE | 2020-06-17 14:21 | NUR ---
Jason Consult: Jason 11; IAD otherwise skin intact per WOC note. Pt NG has been pulled advanced to Na-restricted diet per MD. Rectal tube in place w/ 1000ml output receiving routine lactulose; ammonia WNL down from 160 prior. RN reports pt drinking lots of fluids and requests ONS; RD recommends resuming ensure enlives TIDWM IF MD agreeable. Thirst likely r/t Na 152 at this time. RO d/w RN regarding ONS recs since prior order completed when pt made NPO. Will monitor for ONS acceptance. Rec: 1. Advance diet as medically indicated to regular; encourage PO 2. bowel care per rx; receiving routine lactulose per MD 3. ensure enlive TIDWM; encourage PO 4. weekly scaled wts Addendum: 06/17/20 at [address] Amended: Links added.
[2020-06-17 17:40] VITALS: BP 93/59
--- NOTE | 2020-06-17 17:48 | NUR ---
PAGER ID: [phone] MESSAGE: Olinda Sarmiento on neuro, Ms. Sherwood in [id number], just fyi, the fluid from pt's drainage site is fluorescent green/serous, requires multiple dressing changes
[2020-06-17] MEDS: lactose-reduced food (Ensure Enlive) - 237ml bottle PO SCH (18:06)
--- NOTE | 2020-06-17 18:22 | NUR ---
Problems reprioritized. Patient report given, questions answered & plan of care reviewed with
[2020-06-17 18:30] VITALS: BP 92/56
--- NOTE | 2020-06-17 18:45 | NUR ---
Patient in room ORTHO 4013. I have received report from Olinda HARGROVE and had the opportunity to ask questions and assume patient care.
--- NOTE | 2020-06-17 19:36 | NUR ---
Spoke with Hospitalist about patients low BP 88/45 and 92/56. Hospitalist stated to continue to monitor and advise him of any changes. No new orders at this time.
[2020-06-17 22:00] VITALS: BP 122/70
[2020-06-18] MEDS: lactulose 20gm/30ml cup PO SCH ×4 (02:03→20:46)
[2020-06-18] MEDS: HYDROmorphone 1 mg/ml syringe IV PRN ×4 (02:05→18:50)
[2020-06-18 06:00] VITALS: BP 98/57
--- NOTE | 2020-06-18 06:34 | NUR ---
Problems reprioritized. Patient report given, questions answered & plan of care reviewed with Mignon HARGROVE.
[2020-06-18] MEDS: furosemide 20 MG/2 ML vial IV SCH ×2 (07:37→20:47)
[2020-06-18] MEDS: magnesium oxide 400mg tablet PO SCH ×2 (07:37→20:47)
[2020-06-18] MEDS: rifaximin 550mg tablet PO SCH ×2 (07:37→20:47)
[2020-06-18] MEDS: pantoprazole 40mg Tablet.DR PO SCH ×2 (07:37→20:00)
[2020-06-18] MEDS: lactobacillus rhamnosus 10,000 MMU CELLS/CAPSULE PO SCH ×2 (07:37→20:47)
[2020-06-18] MEDS: lactose-reduced food (Ensure Enlive) - 237ml bottle PO SCH ×3 (08:00→18:45)
[2020-06-18] MEDS: K and/or MAG REPLACEMENT MC SCH ×2 (08:00→20:00)
[2020-06-18] MEDS: pantoprazole 40 MG vial IV SCH ×2 (08:00→20:46)
[2020-06-18 08:28] LABS: EOSINOPHILS # (AUTO) 0.5 X10'3 (0-0.9); HEMATOCRIT 27.7 % (35.0-45.0); HEMOGLOBIN 9.1 g/dl (12.0-16.0); MEAN CORPUSCULAR HEMOGLOBIN 32.8 PG (27.0-31.0); MONOCYTES # (AUTO) 0.9 X10'3 (0-0.9); PLATELET COUNT 78 X10'3 (140-440)
[2020-06-18 08:29] LABS: BASOPHILS # (AUTO) 0.1 X10'3 (0-0.2); BASOPHILS % (AUTO) 0.6 % (0-1); EOSINOPHILS % (AUTO) 2.5 % (0-6); LYMPHOCYTES % (AUTO) 9.2 % (21-51); MEAN CORPUSCULAR HGB CONC 32.9 g/dL (33.0-36.5); MEAN CORPUSCULAR VOLUME 99.5 FL (78-98); MEAN PLATELET VOLUME 11.4 FL (7.4-10.4); MONOCYTES % (AUTO) 4.3 % (2-12); NEUTROPHILS # (AUTO) 17.8 X10'3 (1.8-7.7); NEUTROPHILS % (AUTO) 83.4 % (42-75); RED BLOOD COUNT 2.78 X10'6 (4.20-5.60); RED CELL DISTRIBUTION WIDTH 23.3 % (11.5-14.5); WHITE BLOOD COUNT 21.3 X10'3 (4.5-11.0)
[2020-06-18 08:39] LABS: ALANINE AMINOTRANSFERASE 21 U/L (12-78); ALBUMIN 2.4 G/DL (3.4-5.0); ALKALINE PHOSPHATASE 140 IU/L (46-116); ANION GAP 12 (8-16); ASPARTATE AMINO TRANSFERASE 44 U/L (10-37); BILIRUBIN,TOTAL 13.3 MG/DL (0.1-1.0); BLOOD UREA NITROGEN 14 MG/DL (7-18); BUN/CREATININE RATIO 8.5 (6.6-38.0); CALCIUM 8.7 MG/DL (8.5-10.1); CHLORIDE 110 MMOL/L (99-107); CREATININE 1.65 MG/DL (0.40-0.90); GLUCOSE 180 MG/DL (70-104); POTASSIUM 3.2 MMOL/L (3.5-5.1); SODIUM 143 MMOL/L (135-145); TOTAL CARBON DIOXIDE 21.2 MMOL/L (24-32); TOTAL PROTEIN 4.9 G/DL (6.4-8.2); eGFR 33 ML/MIN
[2020-06-18 09:08] LABS: ANISOCYTOSIS 3+; PLATELET ESTIMATE DECREASED
[2020-06-18 09:10] LABS: HYPOCHROMASIA 1+; TARGET CELLS FEW
--- NOTE | 2020-06-18 16:29 | NUR ---
PAGER ID: [phone] MESSAGE: [id number] PresleyVenkat Patient had a large, red clotty BM Mignon [phone]
[2020-06-18] MEDS: potassium Cl 20 mEq SR tablet PO PRN ×2 (16:34→20:47)
--- NOTE | 2020-06-18 16:54 | NUR ---
Reassessment: Pt PO 25-50% avg 2 breakfasts this AM; noted first breakfast only ate 25% protein per EMR. PO 75% avg lunch today. RD d/w RN regarding ONS PO; RN reports unsure at this time and no documentation today for intake so unsure. Pt reports abdomen pain w/ repeat CT showing no reason for pain outside of ascites per MD note. Pt is having frequent diarrhea secondary to routine lactulose ammonia 50 today up from 29 prior though down from 161 previously. Receiving electrolyte replacements per protocol. Will continue to monitor for additional protein/kcal needs this admit pending further PO hx. Rec: 1. Advance diet as medically indicated to regular; encourage PO 2. bowel care per rx; receiving routine lactulose per MD 3. ensure enlive TIDWM; encourage PO 4. weekly scaled wts Addendum: 06/18/20 at [address] Amended: Links added.
--- NOTE | 2020-06-18 16:56 | NUR ---
Student documentation: I have reviewed and agree with all interventions, assessments performed and documented by Ana Quinonez.
--- NOTE | 2020-06-18 16:57 | NUR ---
Student Medication Administration: For this medication-pass time frame, all medication were reviewed, dispensed, administered and documented per hospital policy by Ana Quinonez.
[2020-06-18 18:45] VITALS: BP 124/87
--- NOTE | 2020-06-18 18:45 | NUR ---
Patient in room ORTHO 4013. I have received report from Mignon HARGROVE and had the opportunity to ask questions and assume patient care.
[2020-06-18 22:13] VITALS: BP 135/83
[2020-06-19] MEDS: potassium Cl 20 mEq SR tablet PO PRN (01:53)
[2020-06-19] MEDS: lactulose 20gm/30ml cup PO SCH ×4 (01:53→19:39)
[2020-06-19] MEDS: HYDROmorphone 1 mg/ml syringe IV PRN ×3 (01:54→15:28)
[2020-06-19 06:00] VITALS: BP 117/76
[2020-06-19 06:16] LABS: BASOPHILS # (AUTO) 0.1 X10'3 (0-0.2); BASOPHILS % (AUTO) 0.2 % (0-1); EOSINOPHILS # (AUTO) 0.2 X10'3 (0-0.9); EOSINOPHILS % (AUTO) 0.6 % (0-6); HEMOGLOBIN 9.5 g/dl (12.0-16.0)
--- NOTE | 2020-06-19 06:21 | NUR ---
Problems reprioritized. Patient report given, questions answered & plan of care reviewed with Sharona HARGROVE.
[2020-06-19 06:22] LABS: HEMATOCRIT 28.4 % (35.0-45.0); LYMPHOCYTES # (AUTO) 1.5 X10'3 (1.1-4.8); LYMPHOCYTES % (AUTO) 5.3 % (21-51); MEAN CORPUSCULAR HEMOGLOBIN 33.3 PG (27.0-31.0); MEAN CORPUSCULAR HGB CONC 33.3 g/dL (33.0-36.5); MEAN PLATELET VOLUME 11.6 FL (7.4-10.4); MONOCYTES # (AUTO) 1.2 X10'3 (0-0.9); NEUTROPHILS # (AUTO) 26.1 X10'3 (1.8-7.7); NEUTROPHILS % (AUTO) 89.9 % (42-75); PLATELET COUNT 65 X10'3 (140-440); RED BLOOD COUNT 2.84 X10'6 (4.20-5.60); RED CELL DISTRIBUTION WIDTH 25.2 % (11.5-14.5)
[2020-06-19 06:30] LABS: ALANINE AMINOTRANSFERASE 23 U/L (12-78); ALBUMIN 2.3 G/DL (3.4-5.0); ALKALINE PHOSPHATASE 153 IU/L (46-116); ANION GAP 13 (8-16); BILIRUBIN,TOTAL 15.1 MG/DL (0.1-1.0); BLOOD UREA NITROGEN 15 MG/DL (7-18); BUN/CREATININE RATIO 8.6 (6.6-38.0); CALCIUM 8.8 MG/DL (8.5-10.1); CHLORIDE 107 MMOL/L (99-107); CREATININE 1.75 MG/DL (0.40-0.90); GLUCOSE 176 MG/DL (70-104); SODIUM 140 MMOL/L (135-145); TOTAL CARBON DIOXIDE 20.2 MMOL/L (24-32); eGFR 31 ML/MIN
[2020-06-19 06:34] LABS: WHITE BLOOD COUNT 29.1 X10'3 (4.5-11.0)
[2020-06-19 06:38] LABS: ALBUMIN/GLOBULIN RATIO 0.9 (1.1-1.5); ASPARTATE AMINO TRANSFERASE 43 U/L (10-37); POTASSIUM 3.8 MMOL/L (3.5-5.1)
[2020-06-19] MEDS: pantoprazole 40mg Tablet.DR PO SCH ×2 (07:11→19:39)
[2020-06-19] MEDS: rifaximin 550mg tablet PO SCH ×2 (07:11→19:39)
[2020-06-19] MEDS: magnesium oxide 400mg tablet PO SCH ×2 (07:11→19:39)
[2020-06-19] MEDS: lactobacillus rhamnosus 10,000 MMU CELLS/CAPSULE PO SCH ×2 (07:12→19:39)
[2020-06-19] MEDS: furosemide 20 MG/2 ML vial IV SCH ×2 (07:23→19:39)
[2020-06-19] MEDS: predniSONE 20 mg tablet PO SCH (07:29)
[2020-06-19] MEDS: albumin (human) 25% 100ml IV 100 ML IV SCH ×2 (07:34→19:40)
[2020-06-19] MEDS: lactose-reduced food (Ensure Enlive) - 237ml bottle PO SCH ×3 (08:00→18:00)
[2020-06-19] MEDS: K and/or MAG REPLACEMENT MC SCH ×2 (08:00→20:00)
[2020-06-19] MEDS: pantoprazole 40 MG vial IV SCH ×2 (08:00→20:00)
[2020-06-19 08:47] LABS: NUCLEATED RED BLOOD CELLS 3 /100WBC (0-0); TOTAL CELLS COUNTED 100
[2020-06-19 08:48] LABS: ANISOCYTOSIS 3+; PLATELET ESTIMATE DECREASED; TOXIC GRANULATION 1+
[2020-06-19 08:50] LABS: BURR CELLS 1+; POLYCHROMASIA FEW; TOXIC VACUOLATION FEW
[2020-06-19 08:51] LABS: LARGE PLATELETS FEW
[2020-06-19 08:52] LABS: TARGET CELLS FEW
[2020-06-19] MEDS: octreotide 100mcg/1 ml ampule SQ SCH ×2 (10:25→16:22)
[2020-06-19 15:42] LABS: HEMATOCRIT 25.1 % (35.0-45.0); HEMOGLOBIN 8.2 g/dl (12.0-16.0); MEAN CORPUSCULAR HEMOGLOBIN 33.7 PG (27.0-31.0); MEAN CORPUSCULAR HGB CONC 32.7 g/dL (33.0-36.5); MEAN CORPUSCULAR VOLUME 103.1 FL (78-98); MEAN PLATELET VOLUME 12.1 FL (7.4-10.4); PLATELET COUNT 63 X10'3 (140-440); RED BLOOD COUNT 2.44 X10'6 (4.20-5.60); RED CELL DISTRIBUTION WIDTH 25.6 % (11.5-14.5)
[2020-06-19 15:47] LABS: WHITE BLOOD COUNT 32.7 X10'3 (4.5-11.0)
--- NOTE | 2020-06-19 15:52 | NUR ---
PAGER ID: [phone] MESSAGE: RE: Coco Sherwood. WBC went up to 32.7 from recent lab draw. h/h stable 8.2/25.1 LATONIA [id number]
--- NOTE | 2020-06-19 16:54 | NUR ---
Student Medication Administration: For this medication-pass time frame, all medication were reviewed, dispensed, administered and documented per hospital policy by Ana Quinonez
--- NOTE | 2020-06-19 16:54 | NUR ---
Student documentation: I have reviewed and agree with all interventions, assessments performed and documented by Ana Quinonez.
[2020-06-19 18:00] VITALS: BP 99/67
--- NOTE | 2020-06-19 18:16 | NUR ---
Problems reprioritized. Patient report given, questions answered & plan of care reviewed with Ashlie Nichols RN.
[2020-06-19 22:00] VITALS: BP 112/64
[2020-06-20] VITALS (11 sets, daily range): BP systolic 104–129; BP diastolic 64–78
[2020-06-20] MEDS: octreotide 100mcg/1 ml ampule SQ SCH ×4 (00:28→23:55)
[2020-06-20] MEDS: lactulose 20gm/30ml cup PO SCH ×4 (02:36→20:25)
[2020-06-20] MEDS: HYDROcodone/acetaminophen 5mg/325mg tablet PO PRN (02:41)
[2020-06-20] MEDS: HYDROmorphone inj. 0.5 MG/0.5 ML DISP.SYRIN IV PRN ×3 (05:38→20:10)
[2020-06-20 06:12] LABS: BASOPHILS % (AUTO) 0.1 % (0-1); EOSINOPHILS % (AUTO) 0.1 % (0-6); LYMPHOCYTES # (AUTO) 1.8 X10'3 (1.1-4.8); LYMPHOCYTES % (AUTO) 5.5 % (21-51); MEAN CORPUSCULAR HEMOGLOBIN 33.8 PG (27.0-31.0); MEAN CORPUSCULAR HGB CONC 32.9 g/dL (33.0-36.5); MEAN CORPUSCULAR VOLUME 102.8 FL (78-98); MEAN PLATELET VOLUME 11.8 FL (7.4-10.4); MONOCYTES # (AUTO) 1.4 X10'3 (0-0.9); MONOCYTES % (AUTO) 4.2 % (2-12); NEUTROPHILS # (AUTO) 29.9 X10'3 (1.8-7.7); NEUTROPHILS % (AUTO) 90.1 % (42-75); RED BLOOD COUNT 2.07 X10'6 (4.20-5.60)
--- NOTE | 2020-06-20 06:27 | NUR ---
Patient in room ORTHO 4013. I have received report from Ashlie Nichols RN and had the opportunity to ask questions and assume patient care.
[2020-06-20 06:38] LABS: ALANINE AMINOTRANSFERASE 20 U/L (12-78); ALBUMIN 2.4 G/DL (3.4-5.0); ALKALINE PHOSPHATASE 109 IU/L (46-116); ANION GAP 15 (8-16); BILIRUBIN,TOTAL 14.7 MG/DL (0.1-1.0); BLOOD UREA NITROGEN 15 MG/DL (7-18); BUN/CREATININE RATIO 9.5 (6.6-38.0); CALCIUM 8.6 MG/DL (8.5-10.1); CHLORIDE 103 MMOL/L (99-107); CREATININE 1.58 MG/DL (0.40-0.90); GLUCOSE 240 MG/DL (70-104); SODIUM 136 MMOL/L (135-145); TOTAL CARBON DIOXIDE 18.1 MMOL/L (24-32); eGFR 35 ML/MIN
[2020-06-20 06:42] LABS: ALBUMIN/GLOBULIN RATIO 1.1 (1.1-1.5); ASPARTATE AMINO TRANSFERASE 40 U/L (10-37); POTASSIUM 3.9 MMOL/L (3.5-5.1); TOTAL PROTEIN 4.5 G/DL (6.4-8.2)
[2020-06-20 06:45] LABS: HEMATOCRIT 21.3 % (35.0-45.0); WHITE BLOOD COUNT 33.2 X10'3 (4.5-11.0)
[2020-06-20 06:46] LABS: PLATELET COUNT 48 X10'3 (140-440)
--- NOTE | 2020-06-20 07:03 | NUR ---
PAGER ID: [phone] MESSAGE: [id number] Coco Sherwood- Critical labs WBC 33.2 Hgb 7.0 Hct 21.3 Plt 48. Please advise. LATONIA 7144
[2020-06-20 07:12] LABS: NUCLEATED RED BLOOD CELLS 3 /100WBC (0-0); PLATELET ESTIMATE DECREASED; TOTAL CELLS COUNTED 100
[2020-06-20 07:13] LABS: ANISOCYTOSIS 3+; BURR CELLS 2+; HYPOCHROMASIA 1+; POLYCHROMASIA 1+; TARGET CELLS 1+; TOXIC GRANULATION 1+; TOXIC VACUOLATION FEW
[2020-06-20] MEDS: lactobacillus rhamnosus 10,000 MMU CELLS/CAPSULE PO SCH ×2 (07:46→20:24)
[2020-06-20] MEDS: pantoprazole 40mg Tablet.DR PO SCH ×2 (07:46→20:24)
[2020-06-20] MEDS: predniSONE 20 mg tablet PO SCH (07:47)
[2020-06-20] MEDS: magnesium oxide 400mg tablet PO SCH ×2 (07:47→20:24)
[2020-06-20] MEDS: pantoprazole 40 MG vial IV SCH ×2 (08:00→19:38)
[2020-06-20] MEDS: K and/or MAG REPLACEMENT MC SCH ×2 (08:00→19:35)
[2020-06-20] MEDS: albumin (human) 25% 100ml IV 100 ML IV SCH ×2 (08:13→20:17)
[2020-06-20] MEDS: rifaximin 550mg tablet PO SCH ×2 (08:14→20:28)
[2020-06-20] MEDS: lactose-reduced food (Ensure Enlive) - 237ml bottle PO SCH ×3 (08:14→18:00)
[2020-06-20] MEDS: furosemide 20 MG/2 ML vial IV SCH ×2 (12:46→22:19)
[2020-06-20 12:59] LABS: HEMATOCRIT 25.2 % (35.0-45.0); HEMOGLOBIN 8.3 g/dl (12.0-16.0); MEAN CORPUSCULAR HEMOGLOBIN 32.3 PG (27.0-31.0); MEAN CORPUSCULAR HGB CONC 33.1 g/dL (33.0-36.5); MEAN CORPUSCULAR VOLUME 97.5 FL (78-98); MEAN PLATELET VOLUME 9.3 FL (7.4-10.4); PLATELET COUNT 106 X10'3 (140-440); RED BLOOD COUNT 2.59 X10'6 (4.20-5.60); RED CELL DISTRIBUTION WIDTH 21.7 % (11.5-14.5)
--- NOTE | 2020-06-20 12:59 | NUR ---
Spoke to Dr. Hobbs about calling patients daughter Corazon. He said he had her number and he would call her later today.
[2020-06-20 13:02] LABS: WHITE BLOOD COUNT 29.8 X10'3 (4.5-11.0)
--- NOTE | 2020-06-20 18:20 | NUR ---
Problems reprioritized. Patient report given, questions answered & plan of care reviewed with Daily HARGROVE.
--- NOTE | 2020-06-20 18:28 | NUR ---
Patient in room ORTHO 4013. I have received report from DELVIN Tabor and had the opportunity to ask questions and assume patient care.
[2020-06-20 20:55] LABS: HEMATOCRIT 25.6 % (35.0-45.0); HEMOGLOBIN 8.4 g/dl (12.0-16.0); MEAN CORPUSCULAR HEMOGLOBIN 32.8 PG (27.0-31.0); MEAN CORPUSCULAR VOLUME 99.4 FL (78-98); MEAN PLATELET VOLUME 10.2 FL (7.4-10.4); PLATELET COUNT 78 X10'3 (140-440); RED BLOOD COUNT 2.58 X10'6 (4.20-5.60); RED CELL DISTRIBUTION WIDTH 25.6 % (11.5-14.5)
[2020-06-20 21:21] LABS: WHITE BLOOD COUNT 29.1 X10'3 (4.5-11.0)
[2020-06-21] MEDS: lactulose 20gm/30ml cup PO SCH ×4 (01:39→20:00)
[2020-06-21] MEDS: HYDROmorphone inj. 0.5 MG/0.5 ML DISP.SYRIN IV PRN ×5 (03:53→23:36)
[2020-06-21 05:47] LABS: BASOPHILS % (AUTO) 0.1 % (0-1); EOSINOPHILS % (AUTO) 0 % (0-6); HEMOGLOBIN 7.3 g/dl (12.0-16.0); LYMPHOCYTES # (AUTO) 1.4 X10'3 (1.1-4.8); LYMPHOCYTES % (AUTO) 5.8 % (21-51); MEAN CORPUSCULAR HEMOGLOBIN 32.8 PG (27.0-31.0); MEAN CORPUSCULAR HGB CONC 33.4 g/dL (33.0-36.5); MEAN CORPUSCULAR VOLUME 98.3 FL (78-98); MEAN PLATELET VOLUME 11.5 FL (7.4-10.4); MONOCYTES # (AUTO) 1.5 X10'3 (0-0.9); MONOCYTES % (AUTO) 6.1 % (2-12); NEUTROPHILS # (AUTO) 21.2 X10'3 (1.8-7.7); PLATELET COUNT 65 X10'3 (140-440); RED BLOOD COUNT 2.23 X10'6 (4.20-5.60); RED CELL DISTRIBUTION WIDTH 24.2 % (11.5-14.5); WHITE BLOOD COUNT 24.1 X10'3 (4.5-11.0)
[2020-06-21 06:00] VITALS: BP 118/71
[2020-06-21 06:16] LABS: HEMATOCRIT 21.9 % (35.0-45.0)
--- NOTE | 2020-06-21 06:42 | NUR ---
Patient in room ORTHO 4013B. I have received report from DELVIN OH and had the opportunity to ask questions and assume patient care.
[2020-06-21 06:46] LABS: CHLORIDE 103 MMOL/L (99-107); SODIUM 138 MMOL/L (135-145)
--- NOTE | 2020-06-21 06:46 | NUR ---
Student documentation: I have reviewed and agree with all interventions, assessments performed and documented by Edin Almeida Yield Engineer. Student Medication Administration: For this medication-pass time frame, all medication were reviewed, dispensed, administered and documented per hospital policy by Edin Almeida Yield Engineer.
--- NOTE | 2020-06-21 06:47 | NUR ---
Problems reprioritized. Patient report given, questions answered & plan of care reviewed with Marge Pierre RN.
[2020-06-21 06:48] LABS: POTASSIUM 2.7 MMOL/L (3.5-5.1)
--- NOTE | 2020-06-21 06:51 | NUR ---
CRITICAL POTASSIUM 2.7, [id number], CALLED DR MARTINEZ, RECEIVED ORDERS TO PUT PATIENT ON PROTOCAL
[2020-06-21] MEDS ORDERED: magnesium 4gm in 100ml NS 100 ML IV PRN (06:55)
[2020-06-21] MEDS ORDERED: magnesium Cl slow-release 64mg tablet PO PRN (06:55)
[2020-06-21] MEDS ORDERED: potassium CL 10mEq/100ml bag 100 ML IV PRN (06:55)
[2020-06-21 07:19] LABS: ANISOCYTOSIS 3+; BURR CELLS 2+; NUCLEATED RED BLOOD CELLS 1 /100WBC (0-0); PLATELET ESTIMATE DECREASED; POLYCHROMASIA 1+; TOTAL CELLS COUNTED 100
[2020-06-21 07:20] LABS: TARGET CELLS 2+
[2020-06-21 07:45] LABS: ALANINE AMINOTRANSFERASE 20 U/L (12-78); ALKALINE PHOSPHATASE 106 IU/L (46-116); ANION GAP 16 (8-16); BILIRUBIN,TOTAL 15.1 MG/DL (0.1-1.0); BLOOD UREA NITROGEN 14 MG/DL (7-18); CALCIUM 8.9 MG/DL (8.5-10.1); TOTAL CARBON DIOXIDE 19.2 MMOL/L (24-32)
[2020-06-21 07:46] LABS: ALBUMIN/GLOBULIN RATIO 1.6 (1.1-1.5); ASPARTATE AMINO TRANSFERASE 28 U/L (10-37); BUN/CREATININE RATIO 9.1 (6.6-38.0); CREATININE 1.54 MG/DL (0.40-0.90); GLUCOSE 272 MG/DL (70-104); TOTAL PROTEIN 4.9 G/DL (6.4-8.2); eGFR 36 ML/MIN
[2020-06-21] MEDS: K and/or MAG REPLACEMENT MC SCH ×2 (08:00→20:00)
[2020-06-21] MEDS: lactose-reduced food (Ensure Enlive) - 237ml bottle PO SCH ×3 (08:00→18:54)
[2020-06-21] MEDS: pantoprazole 40 MG vial IV SCH ×2 (08:00→20:00)
[2020-06-21 10:00] VITALS: BP 117/67
[2020-06-21] MEDS: furosemide 20 MG/2 ML vial IV SCH ×2 (10:33→20:32)
[2020-06-21] MEDS: predniSONE 20 mg tablet PO SCH (10:34)
[2020-06-21] MEDS: magnesium oxide 400mg tablet PO SCH ×2 (10:35→20:30)
[2020-06-21] MEDS: pantoprazole 40mg Tablet.DR PO SCH ×2 (10:35→20:31)
[2020-06-21] MEDS: potassium Cl 20 mEq SR tablet PO PRN ×3 (10:35→23:34)
[2020-06-21] MEDS: lactobacillus rhamnosus 10,000 MMU CELLS/CAPSULE PO SCH ×2 (10:35→20:30)
[2020-06-21] MEDS: rifaximin 550mg tablet PO SCH ×2 (10:35→20:31)
[2020-06-21] MEDS: albumin (human) 25% 100ml IV 100 ML IV SCH ×2 (10:40→20:30)
--- NOTE | 2020-06-21 11:56 | NUR ---
F/u 06/21: Pt PO has been poor overall past 7 days 0-25% meals/ONS not meeting needs. Given poor PO intake in addition to BLE 4+ pitting edema pt meets minimum severe malnutrition criteria; MD notified. Noted pt having hand tremors last night; RO d/w RN regarding liberalizing to regular diet as well as B12 and MVI supplementation given DX if MD agreeable. No rectal tube noted at this time though frequent BMsx8 past 24 hours receiving routine lactulose. Receiving electrolyte replacement per protocol. Will continue to monitor. Rec: 1. Advance diet as medically indicated to regular; encourage PO 2. ensure enlive TIDWM; encourage PO 3. B12, MVI supplementation given DX 4. bowel care per rx; receiving routine lactulose per MD 5. scaled wt this admit Addendum: 06/21/20 at [address] Amended: Links added.
[2020-06-21] MEDS: octreotide 100mcg/1 ml ampule SQ SCH ×3 (12:14→23:36)
[2020-06-21 12:50] LABS: HEMATOCRIT 22.7 % (35.0-45.0); HEMOGLOBIN 7.6 g/dl (12.0-16.0); MEAN CORPUSCULAR HGB CONC 33.6 g/dL (33.0-36.5); MEAN CORPUSCULAR VOLUME 98.2 FL (78-98); MEAN PLATELET VOLUME 11.6 FL (7.4-10.4); PLATELET COUNT 58 X10'3 (140-440); RED BLOOD COUNT 2.31 X10'6 (4.20-5.60); RED CELL DISTRIBUTION WIDTH 25.2 % (11.5-14.5); WHITE BLOOD COUNT 19.8 X10'3 (4.5-11.0)
[2020-06-21 18:00] VITALS: BP 131/79
--- NOTE | 2020-06-21 18:30 | NUR ---
Patient in room ORTHO 4013. I have received report from Hellen HARGROVE and had the opportunity to ask questions and assume patient care.
--- NOTE | 2020-06-21 18:40 | NUR ---
Problems reprioritized. Patient report given, questions answered & plan of care reviewed with DELVIN CARBONE.
[2020-06-21 22:00] VITALS: BP 130/77
[2020-06-22] VITALS (10 sets, daily range): BP systolic 120–150; BP diastolic 68–89
[2020-06-22] MEDS: lactulose 20gm/30ml cup PO SCH ×4 (02:06→19:52)
[2020-06-22 02:20] LABS: MEAN CORPUSCULAR HEMOGLOBIN 32.9 PG (27.0-31.0); MEAN CORPUSCULAR HGB CONC 33.3 g/dL (33.0-36.5); MEAN CORPUSCULAR VOLUME 98.6 FL (78-98); MEAN PLATELET VOLUME 9.5 FL (7.4-10.4); RED BLOOD COUNT 1.95 X10'6 (4.20-5.60); RED CELL DISTRIBUTION WIDTH 25.6 % (11.5-14.5); WHITE BLOOD COUNT 12.8 X10'3 (4.5-11.0)
[2020-06-22 02:28] LABS: HEMATOCRIT 19.2 % (35.0-45.0); HEMOGLOBIN 6.4 g/dl (12.0-16.0)
[2020-06-22 02:30] LABS: PLATELET COUNT 4 X10'3 (140-440)
--- NOTE | 2020-06-22 02:40 | NUR ---
Page Sent PAGER ID: [phone] MESSAGE: pt in rm #[id number]-Coco Sherwood Critical labs=platelets 4, H & H 6.4/19.2. Pt has 1 unit of blood ready at - Please advise #[phone]
[2020-06-22] MEDS: HYDROmorphone inj. 0.5 MG/0.5 ML DISP.SYRIN IV PRN ×2 (05:14→08:21)
[2020-06-22 06:19] LABS: MAGNESIUM 1.6 MG/DL (1.5-2.4); POTASSIUM 3.4 MMOL/L (3.5-5.1)
--- NOTE | 2020-06-22 06:20 | NUR ---
Problems reprioritized. Patient report given, questions answered & plan of care reviewed with Aparna HARGROVE.
--- NOTE | 2020-06-22 06:20 | NUR ---
Patient in room ORTHO 4013. I have received report from Cintia HARGROVE and had the opportunity to ask questions and assume patient care. Redraw for lab needs to be completed.
--- NOTE | 2020-06-22 06:45 | NUR ---
Patient in room ORTHO 4013b. I have received report from DELVIN Wells and had the opportunity to ask questions and assume patient care.
[2020-06-22 06:52] LABS: PRE OP PARTIAL THROMB. TIME 49 SECONDS (22-32)
[2020-06-22 07:40] LABS: MEAN CORPUSCULAR HEMOGLOBIN 32.9 PG (27.0-31.0); MEAN CORPUSCULAR HGB CONC 33.5 g/dL (33.0-36.5); MEAN CORPUSCULAR VOLUME 98.2 FL (78-98); MEAN PLATELET VOLUME 10.7 FL (7.4-10.4); PLATELET COUNT 66 X10'3 (140-440); RED BLOOD COUNT 1.88 X10'6 (4.20-5.60); WHITE BLOOD COUNT 13.8 X10'3 (4.5-11.0)
[2020-06-22 07:48] LABS: HEMATOCRIT 18.5 % (35.0-45.0); HEMOGLOBIN 6.2 g/dl (12.0-16.0)
[2020-06-22] MEDS: K and/or MAG REPLACEMENT MC SCH ×2 (08:00→20:00)
[2020-06-22] MEDS: furosemide 20 MG/2 ML vial IV SCH ×2 (08:24→19:53)
[2020-06-22] MEDS: pantoprazole 40 MG vial IV SCH ×2 (08:24→20:00)
[2020-06-22] MEDS: predniSONE 20 mg tablet PO SCH (08:24)
[2020-06-22] MEDS: pantoprazole 40mg Tablet.DR PO SCH ×2 (08:25→19:43)
[2020-06-22] MEDS: rifaximin 550mg tablet PO SCH ×2 (08:28→19:43)
[2020-06-22] MEDS: albumin (human) 25% 100ml IV 100 ML IV SCH ×2 (08:29→20:03)
[2020-06-22] MEDS: lactobacillus rhamnosus 10,000 MMU CELLS/CAPSULE PO SCH ×2 (08:40→19:43)
[2020-06-22] MEDS: lactose-reduced food (Ensure Enlive) - 237ml bottle PO SCH ×3 (08:41→20:12)
[2020-06-22] MEDS: magnesium oxide 400mg tablet PO SCH ×2 (08:41→19:42)
[2020-06-22 09:36] LABS: ALANINE AMINOTRANSFERASE 25 U/L (12-78); ALBUMIN 3.5 G/DL (3.4-5.0); ALKALINE PHOSPHATASE 90 IU/L (46-116); ANION GAP 18 (8-16); ASPARTATE AMINO TRANSFERASE 30 U/L (10-37); BILIRUBIN,TOTAL 12.1 MG/DL (0.1-1.0); BLOOD UREA NITROGEN 13 MG/DL (7-18); BUN/CREATININE RATIO 10.2 (6.6-38.0); CALCIUM 9.4 MG/DL (8.5-10.1); CHLORIDE 103 MMOL/L (99-107); CREATININE 1.28 MG/DL (0.40-0.90); GLUCOSE 351 MG/DL (70-104); SODIUM 140 MMOL/L (135-145); TOTAL CARBON DIOXIDE 19.3 MMOL/L (24-32); eGFR 45 ML/MIN
[2020-06-22 09:37] LABS: ALBUMIN/GLOBULIN RATIO 1.8 (1.1-1.5); TOTAL PROTEIN 5.4 G/DL (6.4-8.2)
[2020-06-22] MEDS ORDERED: naloxone 0.4 mg/ml inj IV PRN (10:15)
[2020-06-22] MEDS ORDERED: CADD PCA waste documentation MC PRN (10:15)
[2020-06-22] MEDS: potassium Cl 20 mEq SR tablet PO PRN ×3 (10:42→19:45)
[2020-06-22] MEDS: octreotide 100mcg/1 ml ampule SQ SCH ×2 (10:54→14:55)
[2020-06-22] MEDS: normal saline 1000ml 1,000 ML IV SCH (11:00)
[2020-06-22] MEDS: HYDROmorphone/NS 1 mg/ml CADD 50 ML IV SCH ×8 (11:00→23:00)
--- NOTE | 2020-06-22 11:29 | NUR ---
Patient will not allow another PIV placed. PIV needed do to Blood being transfused, unable to hang CADD until Blood transfusion is completed.
--- NOTE | 2020-06-22 18:24 | NUR ---
Problems reprioritized. Patient report given, questions answered & plan of care reviewed with Michelle HARGROVE.
[2020-06-22 19:12] LABS: HEMATOCRIT 25.4 % (35.0-45.0); HEMOGLOBIN 8.5 g/dl (12.0-16.0); MEAN CORPUSCULAR HEMOGLOBIN 32.6 PG (27.0-31.0); MEAN CORPUSCULAR HGB CONC 33.5 g/dL (33.0-36.5); MEAN CORPUSCULAR VOLUME 97.4 FL (78-98); MEAN PLATELET VOLUME 12.5 FL (7.4-10.4); RED BLOOD COUNT 2.61 X10'6 (4.20-5.60); RED CELL DISTRIBUTION WIDTH 20.2 % (11.5-14.5); WHITE BLOOD COUNT 13.3 X10'3 (4.5-11.0)
[2020-06-22 19:22] LABS: PLATELET COUNT 44 X10'3 (140-440)
--- NOTE | 2020-06-22 19:26 | NUR ---
Received Critical lab result for PLT of 44. MD Bravo notified no new orders at this time r/t pt going home on hospice tomorrow. Reviewed H/H results with and received orders to cancel 0000 hemogram and have labs draw as scheduled for AM draw.
[2020-06-23] VITALS: BP 146/77
[2020-06-23] MEDS: HYDROmorphone/NS 1 mg/ml CADD 50 ML IV SCH ×12 (01:00→23:00)
[2020-06-23] MEDS: octreotide 100mcg/1 ml ampule SQ SCH (01:22)
[2020-06-23] MEDS: lactulose 20gm/30ml cup PO SCH ×4 (02:00→18:28)
[2020-06-23 06:00] VITALS: BP 142/80
--- NOTE | 2020-06-23 06:20 | NUR ---
Problems reprioritized. Patient report given, questions answered & plan of care reviewed with HARITHA HARGROVE.
--- NOTE | 2020-06-23 06:29 | NUR ---
I have received report from Michelle HARGROVE and had the opportunity to ask questions and assume patient care.
--- NOTE | 2020-06-23 06:42 | NUR ---
Patient in room ORTHO 4013B. I have received report from Michelle HARGROVE and had the opportunity to ask questions and assume patient care.
[2020-06-23 07:17] LABS: MAGNESIUM 1.5 MG/DL (1.5-2.4)
[2020-06-23] MEDS: K and/or MAG REPLACEMENT MC SCH ×2 (08:00→20:00)
[2020-06-23 08:22] LABS: BASOPHILS % (AUTO) 0.1 % (0-1); EOSINOPHILS % (AUTO) 0.3 % (0-6); HEMATOCRIT 24.5 % (35.0-45.0); HEMOGLOBIN 8.2 g/dl (12.0-16.0); LYMPHOCYTES # (AUTO) 1.3 X10'3 (1.1-4.8); MEAN CORPUSCULAR HEMOGLOBIN 32.6 PG (27.0-31.0); MEAN CORPUSCULAR HGB CONC 33.4 g/dL (33.0-36.5); MEAN CORPUSCULAR VOLUME 97.6 FL (78-98); MEAN PLATELET VOLUME 13.1 FL (7.4-10.4); MONOCYTES # (AUTO) 1.2 X10'3 (0-0.9); MONOCYTES % (AUTO) 7.9 % (2-12); NEUTROPHILS # (AUTO) 12.1 X10'3 (1.8-7.7); NEUTROPHILS % (AUTO) 82.7 % (42-75); RED BLOOD COUNT 2.51 X10'6 (4.20-5.60); RED CELL DISTRIBUTION WIDTH 22.1 % (11.5-14.5); WHITE BLOOD COUNT 14.6 X10'3 (4.5-11.0)
[2020-06-23 08:27] LABS: PLATELET COUNT 41 X10'3 (140-440)
[2020-06-23 09:11] LABS: ANISOCYTOSIS 3+; LARGE PLATELETS FEW; PLATELET ESTIMATE DECREASED
[2020-06-23 09:12] LABS: MICROCYTOSIS 1+
--- NOTE | 2020-06-23 09:25 | NUR ---
Sent page to PICC nurse for PIV placement. Attempted 3 times.
[2020-06-23 10:00] VITALS: BP 154/95
[2020-06-23] MEDS: lactose-reduced food (Ensure Enlive) - 237ml bottle PO SCH ×3 (10:00→14:05)
[2020-06-23 10:06] LABS: ALANINE AMINOTRANSFERASE 27 U/L (12-78); ALBUMIN 3.6 G/DL (3.4-5.0); ALKALINE PHOSPHATASE 95 IU/L (46-116); ANION GAP 14 (8-16); ASPARTATE AMINO TRANSFERASE 32 U/L (10-37); BILIRUBIN,TOTAL 14.2 MG/DL (0.1-1.0); BLOOD UREA NITROGEN 9 MG/DL (7-18); BUN/CREATININE RATIO 8.3 (6.6-38.0); CALCIUM 9.1 MG/DL (8.5-10.1); CHLORIDE 103 MMOL/L (99-107); CREATININE 1.08 MG/DL (0.40-0.90); GLUCOSE 407 MG/DL (70-104); SODIUM 140 MMOL/L (135-145); TOTAL CARBON DIOXIDE 22.9 MMOL/L (24-32); eGFR 54 ML/MIN
[2020-06-23 10:07] LABS: ALBUMIN/GLOBULIN RATIO 1.9 (1.1-1.5); POTASSIUM 3.5 MMOL/L (3.5-5.1); TOTAL PROTEIN 5.5 G/DL (6.4-8.2)
[2020-06-23] MEDS: lactobacillus rhamnosus 10,000 MMU CELLS/CAPSULE PO SCH ×2 (10:12→20:24)
[2020-06-23] MEDS: albumin (human) 25% 100ml IV 100 ML IV SCH ×2 (10:12→20:26)
[2020-06-23] MEDS: magnesium oxide 400mg tablet PO SCH ×2 (10:12→20:24)
[2020-06-23] MEDS: predniSONE 20 mg tablet PO SCH (10:12)
[2020-06-23] MEDS: rifaximin 550mg tablet PO SCH ×2 (10:13→20:24)
[2020-06-23] MEDS: pantoprazole 40mg Tablet.DR PO SCH ×2 (10:13→20:00)
[2020-06-23] MEDS: furosemide 20 MG/2 ML vial IV SCH ×2 (10:13→20:23)
[2020-06-23] MEDS: pantoprazole 40 MG vial IV SCH ×2 (13:49→20:00)
[2020-06-23 15:23] LABS: HEMATOCRIT 23.5 % (35.0-45.0); HEMOGLOBIN 7.8 g/dl (12.0-16.0); MEAN CORPUSCULAR HEMOGLOBIN 32.8 PG (27.0-31.0); MEAN CORPUSCULAR HGB CONC 33.2 g/dL (33.0-36.5); MEAN CORPUSCULAR VOLUME 98.7 FL (78-98); RED BLOOD COUNT 2.38 X10'6 (4.20-5.60); WHITE BLOOD COUNT 15.3 X10'3 (4.5-11.0)
[2020-06-23 15:40] LABS: PLATELET COUNT 39 X10'3 (140-440)
--- NOTE | 2020-06-23 15:46 | NUR ---
PAGER ID: [phone] MESSAGE: [id number] [address] Plt count 39. Aparnaqs [id number]
--- NOTE | 2020-06-23 16:47 | NUR ---
Student documentation: I have reviewed all interventions, assessments performed and documented by oJse LUJAN of [facility]. Student Medication Administration: For all medication-pass' in the time frame of 5742-4226, all medications were reviewed, dispensed, administered and documented per hospital policy by Jose LUJAN of [facility].
--- NOTE | 2020-06-23 17:24 | NUR ---
PAGER ID: [phone] MESSAGE: [id number] Coco seems really sedated on the CADD. She can not talk on the phone or hold it up. I'd like to take it down. Aparna [id number]
[2020-06-23 18:00] VITALS: BP 148/85
--- NOTE | 2020-06-23 18:44 | NUR ---
PAGER ID: [phone] MESSAGE: Coco-- Ammonia is 30 Aparna [phone]
[2020-06-23 22:00] VITALS: BP 163/84
--- NOTE | 2020-06-24 00:45 | NUR ---
pt refused blood draw as per pt wants it in the morning.
[2020-06-24] MEDS: HYDROmorphone/NS 1 mg/ml CADD 50 ML IV SCH ×11 (01:00→23:00)
[2020-06-24] MEDS: lactulose 20gm/30ml cup PO SCH ×4 (02:00→20:15)
[2020-06-24 06:00] VITALS: BP 122/65
--- NOTE | 2020-06-24 06:00 | NUR ---
Patient in room ORTHO 4013. I have received report from Jeni RN and had the opportunity to ask questions and assume patient care.
[2020-06-24 06:45] LABS: HEMOGLOBIN 7.8 g/dl (12.0-16.0); MEAN CORPUSCULAR HEMOGLOBIN 33.7 PG (27.0-31.0); MEAN CORPUSCULAR HGB CONC 33.7 g/dL (33.0-36.5); MEAN CORPUSCULAR VOLUME 99.8 FL (78-98); MEAN PLATELET VOLUME 13.4 FL (7.4-10.4); RED BLOOD COUNT 2.31 X10'6 (4.20-5.60); RED CELL DISTRIBUTION WIDTH 20.7 % (11.5-14.5); WHITE BLOOD COUNT 12.4 X10'3 (4.5-11.0)
[2020-06-24 06:51] LABS: PLATELET COUNT 33 X10'3 (140-440)
[2020-06-24 07:10] LABS: ALANINE AMINOTRANSFERASE 30 U/L (12-78); ALBUMIN 3.2 G/DL (3.4-5.0); ALKALINE PHOSPHATASE 96 IU/L (46-116); ANION GAP 11 (8-16); ASPARTATE AMINO TRANSFERASE 39 U/L (10-37); BILIRUBIN,TOTAL 12.9 MG/DL (0.1-1.0); BLOOD UREA NITROGEN 6 MG/DL (7-18); BUN/CREATININE RATIO 5.9 (6.6-38.0); CALCIUM 8.9 MG/DL (8.5-10.1); CHLORIDE 99 MMOL/L (99-107); CREATININE 1.02 MG/DL (0.40-0.90); MAGNESIUM 1.4 MG/DL (1.5-2.4); SODIUM 135 MMOL/L (135-145); TOTAL CARBON DIOXIDE 25.2 MMOL/L (24-32); eGFR 58 ML/MIN
[2020-06-24 07:14] LABS: TOTAL PROTEIN 4.9 G/DL (6.4-8.2)
[2020-06-24 07:15] LABS: GLUCOSE 490 MG/DL (70-104)
[2020-06-24 07:16] LABS: ALBUMIN/GLOBULIN RATIO 1.9 (1.1-1.5); POTASSIUM 2.6 MMOL/L (3.5-5.1)
[2020-06-24] MEDS: pantoprazole 40 MG vial IV SCH ×2 (08:00→20:00)
[2020-06-24] MEDS: K and/or MAG REPLACEMENT MC SCH ×2 (08:00→20:00)
[2020-06-24] MEDS: lactose-reduced food (Ensure Enlive) - 237ml bottle PO SCH ×3 (08:00→18:00)
[2020-06-24] MEDS ORDERED: potassium Cl 20 mEq SR tablet PO PRN (09:00)
[2020-06-24] MEDS ORDERED: potassium CL 10mEq/100ml bag 100 ML IV PRN (09:00)
[2020-06-24] MEDS ORDERED: magnesium Cl slow-release 64mg tablet PO PRN (09:00)
[2020-06-24] MEDS ORDERED: magnesium 4gm in 100ml NS 100 ML IV PRN (09:00)
[2020-06-24] MEDS: furosemide 20 MG/2 ML vial IV SCH ×2 (09:13→20:14)
[2020-06-24] MEDS: lactobacillus rhamnosus 10,000 MMU CELLS/CAPSULE PO SCH ×2 (09:13→20:14)
[2020-06-24] MEDS: rifaximin 550mg tablet PO SCH ×2 (09:13→20:14)
[2020-06-24] MEDS: pantoprazole 40mg Tablet.DR PO SCH ×2 (09:13→20:14)
[2020-06-24] MEDS: albumin (human) 25% 100ml IV 100 ML IV SCH ×2 (09:13→20:20)
[2020-06-24] MEDS: predniSONE 20 mg tablet PO SCH (09:13)
[2020-06-24] MEDS: magnesium oxide 400mg tablet PO SCH ×2 (09:13→20:14)
[2020-06-24] MEDS: potassium Cl 20 mEq SR tablet PO PRN ×2 (09:16→15:36)
[2020-06-24 10:00] VITALS: BP 133/68
[2020-06-24] MEDS: normal saline 1000ml 1,000 ML IV SCH (10:15)
--- NOTE | 2020-06-24 13:55 | NUR ---
Reassessment 06/24: Pt PO consistently poor meals (0-25%) and occasional ONS intake. BLE 4+ pitting edema still present. Paracentesis done 06/12 (350ml). Recommend regular diet, Vitamin B12, and MVI supplementation if MD agreeable. Met with patient at bedside, discussed appetite and food preferences. Had complaints of of chewing difficulty and offered chopped foods. Also obtained ONS preferences, prefers chocolate. Discussed with dietary. Will continue to monitor. Rec: 1. Advance diet as medically indicated to regular, send chopped meats; encourage PO 2. chocolate ensure enlive TIDWM; encourage PO 3. B12, MVI supplementation given DX 4. bowel care per rx; receiving routine lactulose per MD 5. scaled wt this admit Addendum: 06/24/20 at [address] Amended: Links added. Addendum: 06/24/20 at [address] RD agree with note
[2020-06-24 18:00] VITALS: BP 155/83
--- NOTE | 2020-06-24 18:18 | NUR ---
Problems reprioritized. Patient report given, questions answered & plan of care reviewed with Megan HARGROVE.
--- NOTE | 2020-06-24 18:35 | NUR ---
Patient in room ORTHO 4013. I have received report from Sharona HARGROVE and had the opportunity to ask questions and assume patient care.
[2020-06-24 19:45] LABS: HEMATOCRIT 26.1 % (35.0-45.0); HEMOGLOBIN 8.6 g/dl (12.0-16.0); MEAN CORPUSCULAR HEMOGLOBIN 32.9 PG (27.0-31.0); MEAN CORPUSCULAR HGB CONC 32.8 g/dL (33.0-36.5); MEAN CORPUSCULAR VOLUME 100.4 FL (78-98); MEAN PLATELET VOLUME 13.4 FL (7.4-10.4); RED CELL DISTRIBUTION WIDTH 24.1 % (11.5-14.5); WHITE BLOOD COUNT 14.5 X10'3 (4.5-11.0)
[2020-06-24 19:57] LABS: PLATELET COUNT 37 X10'3 (140-440)
[2020-06-24 22:00] VITALS: BP 168/72
[2020-06-25] MEDS: HYDROmorphone/NS 1 mg/ml CADD 50 ML IV SCH ×3 (01:00→05:00)
[2020-06-25] MEDS: potassium Cl 20 mEq SR tablet PO PRN ×2 (01:07→09:28)
[2020-06-25] MEDS: normal saline 1000ml 1,000 ML IV SCH (01:08)
[2020-06-25] MEDS: lactulose 20gm/30ml cup PO SCH ×2 (02:00→09:28)
[2020-06-25 06:00] VITALS: BP 139/78
--- NOTE | 2020-06-25 06:00 | NUR ---
Patient in room ORTHO 4013. I have received report from Megan HARGROVE and had the opportunity to ask questions and assume patient care.
--- NOTE | 2020-06-25 06:17 | NUR ---
Problems reprioritized. Patient report given, questions answered & plan of care reviewed with Sharona HARGROVE.
[2020-06-25 06:29] LABS: HEMOGLOBIN 7.8 g/dl (12.0-16.0); MEAN CORPUSCULAR HEMOGLOBIN 33.8 PG (27.0-31.0); MEAN CORPUSCULAR HGB CONC 33.9 g/dL (33.0-36.5); MEAN CORPUSCULAR VOLUME 99.6 FL (78-98); MEAN PLATELET VOLUME 12.6 FL (7.4-10.4); RED BLOOD COUNT 2.31 X10'6 (4.20-5.60); RED CELL DISTRIBUTION WIDTH 22.7 % (11.5-14.5); WHITE BLOOD COUNT 11.8 X10'3 (4.5-11.0)
[2020-06-25 06:48] LABS: MAGNESIUM 1.4 MG/DL (1.5-2.4); PLATELET COUNT 31 X10'3 (140-440)
[2020-06-25 06:55] LABS: POTASSIUM 2.8 MMOL/L (3.5-5.1)
--- NOTE | 2020-06-25 07:00 | NUR ---
PAGER ID: [phone] MESSAGE: RE: [id number] Coco Sherwood. Critical platelets 31 and k 2.6. [place] 1068
[2020-06-25] MEDS: K and/or MAG REPLACEMENT MC SCH (08:00)
[2020-06-25] MEDS: lactose-reduced food (Ensure Enlive) - 237ml bottle PO SCH (08:00)
[2020-06-25] MEDS: pantoprazole 40 MG vial IV SCH (08:00)
[2020-06-25] MEDS ORDERED: HYDROmorphone 2mg tablet PO PRN ×2 (09:15)
[2020-06-25] MEDS: rifaximin 550mg tablet PO SCH (09:27)
[2020-06-25] MEDS: predniSONE 20 mg tablet PO SCH (09:27)
[2020-06-25] MEDS: lactobacillus rhamnosus 10,000 MMU CELLS/CAPSULE PO SCH (09:27)
[2020-06-25] MEDS: pantoprazole 40mg Tablet.DR PO SCH (09:27)
[2020-06-25] MEDS: magnesium oxide 400mg tablet PO SCH (09:27)
[2020-06-25] MEDS: furosemide 20 MG/2 ML vial IV SCH (09:28)
[2020-06-25] MEDS: albumin (human) 25% 100ml IV 100 ML IV SCH (09:29)
[2020-06-25 10:00] VITALS: BP 143/81
[2020-06-25] MEDS ORDERED: MULT-687 PO (11:35)
[2020-06-25] MEDS ORDERED: FOLI0.4T2 PO (11:35)
[2020-06-25] MEDS ORDERED: LOPE-144 PO (11:35)
[2020-06-25] MEDS ORDERED: PRED20TA PO (11:35)
[2020-06-25] MEDS ORDERED: PANT40TA54 PO (11:35)
[2020-06-25] MEDS ORDERED: RIFA550T PO (11:35)
[2020-06-25] MEDS ORDERED: MAGN500C16 PO (11:35)
[2020-06-25] MEDS ORDERED: HYDR-4383 PO (11:35)
[2020-06-25] MEDS ORDERED: POTA20TA10 PO (11:35)
[2020-06-25] MEDS ORDERED: LACT10SO32 PO (11:35)
[2020-06-25] MEDS ORDERED: FURO20TA4 PO (11:35)
--- NOTE | 2020-06-25 16:16 | NUR ---
Patient stable for discharge home today with family. Patient will have home health and palliative care. All prescriptions called into [facility] in [place]. IV removed with canula intact.
== END 2020-06-25 13:10 | disposition home health service (06) | DRG 871 ==
LOC: ER 15:30 → ED HOLD 20:10 → ORTHO 4S 21:50
PROVIDERS: ADMIT Internal Medicine; ATTEND Internal Medicine
PROC: 30233N1 Transfusion of Nonautologous Red Blood Cells into Peripheral Vein, Percutaneous Approach (ICD-10-PCS; principal; 2020-06-04)
PROC: BW211ZZ Computerized Tomography (CT Scan) of Abdomen and Pelvis using Low Osmolar Contrast (ICD-10-PCS; 2020-06-04)
PROC: 0W9F30Z Drainage of Abdominal Wall with Drainage Device, Percutaneous Approach (ICD-10-PCS; 2020-06-05)
PROC: 0DB68ZX Excision of Stomach, Via Natural or Artificial Opening Endoscopic, Diagnostic (ICD-10-PCS; 2020-06-05)
PROC: 0DB48ZX Excision of Esophagogastric Junction, Via Natural or Artificial Opening Endoscopic, Diagnostic (ICD-10-PCS; 2020-06-05)
PROC: C713YZZ Planar Nuclear Medicine Imaging of Blood using Other Radionuclide (ICD-10-PCS; 2020-06-06)
PROC: 0DJD8ZZ Inspection of Lower Intestinal Tract, Via Natural or Artificial Opening Endoscopic (ICD-10-PCS; 2020-06-07)
PROC: BW211ZZ Computerized Tomography (CT Scan) of Abdomen and Pelvis using Low Osmolar Contrast (ICD-10-PCS; 2020-06-11)
PROC: 0W9G3ZZ Drainage of Peritoneal Cavity, Percutaneous Approach (ICD-10-PCS; 2020-06-12)
PROC: 30233R1 Transfusion of Nonautologous Platelets into Peripheral Vein, Percutaneous Approach (ICD-10-PCS; 2020-06-13)
PROC: C713YZZ Planar Nuclear Medicine Imaging of Blood using Other Radionuclide (ICD-10-PCS; 2020-06-13)
PROC: 30233K1 Transfusion of Nonautologous Frozen Plasma into Peripheral Vein, Percutaneous Approach (ICD-10-PCS; 2020-06-14)
DX: A41.9 Sepsis, unspecified organism (principal); K65.1 Peritoneal abscess; D62 Acute posthemorrhagic anemia; D68.51 Activated protein C resistance; E87.1 Hypo-osmolality and hyponatremia; K76.6 Portal hypertension; K86.1 Other chronic pancreatitis; N17.9 Acute kidney failure, unspecified; K92.1 Melena; E87.2 Acidosis; D69.6 Thrombocytopenia, unspecified; E83.42 Hypomagnesemia; E87.6 Hypokalemia; E88.09 Other disorders of plasma-protein metabolism, not elsewhere classified; K21.00 Gastro-esophageal reflux disease with esophagitis, without bleeding; F10.21 Alcohol dependence, in remission; G89.29 Other chronic pain; I10 Essential (primary) hypertension; K31.89 Other diseases of stomach and duodenum; K64.9 Unspecified hemorrhoids; K70.11 Alcoholic hepatitis with ascites; K70.31 Alcoholic cirrhosis of liver with ascites; K72.90 Hepatic failure, unspecified without coma; Z66 Do not resuscitate; Z79.01 Long term (current) use of anticoagulants; Z86.718 Personal history of other venous thrombosis and embolism; Z87.19 Personal history of other diseases of the digestive system; Z90.49 Acquired absence of other specified parts of digestive tract; Z90.81 Acquired absence of spleen
CPT/HCPCS: 36415; 36430; 43239; 45378; 49083; 49406; 71045; 71046; 74177; 76705; 76937; 78278; 80048; 80053; 80076; 81001; 81003; 82140; 82272; 82945; 82948; 83605; 83615; 83690; 83735; 84132; 84145; 84157; 84300; 84443; 84484; 85007; 85008; 85025; 85027; 85384; 85610; 85730; 86803; 86870; 86880; 86885; 86900; 86901; 86902; 86905; 86920; 86922; 87040; 87070; 87081; 87088; 87324; 87340; 87449; 89051; 93005; 96365; 96375; 96376; 97110; 97116; 97161; 97530; 97535; 99152; 99153; 99285; A4620; A9560; C9113; G0378; J0696; J0780; J1170; J1940; J2250; J2270; J2354; J2405; J2543; J3010; J3430; J3480; J7030; J7040; J7050; J7512; P9016; P9035; P9047; P9059; Q9963; Q9967

== ENCOUNTER 2020-06-26 13:43 | Emergency (ER) | payer OTHER, MEDICARE ==
[~2020-06-26] VITALS: Ht 157.5 cm; Wt 53.5 kg
[~2020-06-26 13:43] MED LIST: FOLI0.4T2 PO; FURO20TA4 PO; HYDR-4383 PO; LACT10SO32 PO; LOPE-144 PO; MAGN500C16 PO; METO-395 PO; MULT-687 PO; PANT40TA54 PO; POTA20TA10 PO; PRED20TA PO; RIFA550T PO
[2020-06-26 15:29] LABS: BASOPHILS % (AUTO) 0.1 % (0-1); EOSINOPHILS % (AUTO) 0.1 % (0-6); HEMATOCRIT 23.4 % (35.0-45.0); HEMOGLOBIN 7.9 g/dl (12.0-16.0); LYMPHOCYTES # (AUTO) 0.3 X10'3 (1.1-4.8); MEAN CORPUSCULAR HEMOGLOBIN 34.2 PG (27.0-31.0); MEAN CORPUSCULAR HGB CONC 33.8 g/dL (33.0-36.5); MEAN CORPUSCULAR VOLUME 101.1 FL (78-98); MEAN PLATELET VOLUME 11.2 FL (7.4-10.4); MONOCYTES # (AUTO) 0.6 X10'3 (0-0.9); MONOCYTES % (AUTO) 5.4 % (2-12); NEUTROPHILS % (AUTO) 91.4 % (42-75); RED BLOOD COUNT 2.31 X10'6 (4.20-5.60); RED CELL DISTRIBUTION WIDTH 25.1 % (11.5-14.5); WHITE BLOOD COUNT 10.9 X10'3 (4.5-11.0)
[2020-06-26 15:38] LABS: ALANINE AMINOTRANSFERASE 34 U/L (12-78); ALBUMIN 3.6 G/DL (3.4-5.0); ALKALINE PHOSPHATASE 108 IU/L (46-116); ANION GAP 11 (8-16); ASPARTATE AMINO TRANSFERASE 27 U/L (10-37); BILIRUBIN,TOTAL 13.3 MG/DL (0.1-1.0); BLOOD UREA NITROGEN 5 MG/DL (7-18); BUN/CREATININE RATIO 5.1 (6.6-38.0); CALCIUM 9.1 MG/DL (8.5-10.1); CHLORIDE 96 MMOL/L (99-107); CREATININE 0.98 MG/DL (0.40-0.90); POTASSIUM 3.1 MMOL/L (3.5-5.1); SODIUM 132 MMOL/L (135-145); TOTAL CARBON DIOXIDE 24.7 MMOL/L (24-32); eGFR 61 ML/MIN
[2020-06-26 15:39] LABS: TOTAL PROTEIN 5.4 G/DL (6.4-8.2)
[2020-06-26 15:41] LABS: PLATELET COUNT 17 X10'3 (140-440)
[2020-06-26 15:42] LABS: GLUCOSE 597 MG/DL (70-104)
[2020-06-26 15:43] LABS: ANISOCYTOSIS 3+; PLATELET ESTIMATE DECREASED; TOTAL CELLS COUNTED 100
[2020-06-26 15:44] LABS: LARGE PLATELETS FEW; POLYCHROMASIA 1+; STOMATOCYTES 1+; TARGET CELLS 1+
[2020-06-26] MEDS ORDERED: traMADol 50MG tablet PO ONE (15:50)
--- NOTE | 2020-06-26 15:50 | NUR ---
Paged director emergency services.
[2020-06-26] MEDS ORDERED: potassium Cl 20 mEq SR tablet PO STA (15:57)
--- NOTE | 2020-06-26 16:51 | NUR ---
Tianna, Station Installer provided DC POC update to include Home Health starting tomorrow. Pt will be sent home with ailyn, dry flow, depends and wipes for care until Home Health opens service, as per Tianna. Pt's daughters will be instructed on importance of wound cleanliness including shower & soap/water stool removal.
[2020-06-26 17:46] VITALS: BP 115/61
== END 2020-06-26 17:35 | disposition home or self-care (01) ==
LOC: ER 13:44
DX: D64.9 Anemia, unspecified (principal); K70.30 Alcoholic cirrhosis of liver without ascites; R17 Unspecified jaundice; K74.60 Unspecified cirrhosis of liver; D69.6 Thrombocytopenia, unspecified; Z91.018 Allergy to other foods; Z79.899 Other long term (current) drug therapy
CPT/HCPCS: 36415; 80053; 85007; 85025; 99285